=== PATIENT | male | born 1970 | race Caucasian/White ===

== ENCOUNTER 2019-02-13 06:34 | Day surgery (SDC) | payer BC ==
[2019-02-12 12:16] VITALS: BMI 29.8
[~2019-02-13 06:34] MED LIST: DEXAMETHASONE SOD PHOSPHATE 10 MG/ML 1 ML VIAL IV ONE; KETOROLAC 30 MG/ML 1 ML VIAL IVP SCH; LACTATED RINGERS 1,000 ML IV SCH; LIDOCAINE 1% 20 ML VIAL (10MG/ML) FOR IV START INTRADERMA PRN; MIDAZOLAM 2 MG/2 ML VIAL IV PRN; MORPHINE SULFATE 2 MG/ML SYRINGE IV PRN; ONDANSETRON 4 MG/2 ML VIAL IVP PRN; Pre Op ABX Message 1 EACH MISC MISCELLANE ONE
[2019-02-13] MEDS ORDERED: ePHEDrine SULFATE/0.9% NACL/PF 50 MG/5 ML SYRINGE IV ONE (07:20)
[2019-02-13] MEDS ORDERED: MIDAZOLAM 2 MG/2 ML VIAL ONE (07:20)
[2019-02-13] MEDS ORDERED: PHENYLEPHRINE-0.9% NACL SYG 1 MG/10 ML SYRINGE ONE (07:20)
[2019-02-13] MEDS ORDERED: PROPOFOL 10 MG/ML 20 ML VIAL IV ONE (07:20)
[2019-02-13] MEDS ORDERED: SUCCINYLCHOLINE CHLORIDE 100 MG/5 ML SYR IV ONE (07:20)
[2019-02-13] MEDS ORDERED: fentaNYL (PF) 50 MCG/ML 2 ML AMP ONE (07:20)
--- NOTE | 2019-02-13 07:24 | P.GSHP ---
History of Present Illness H&P Date: 02/13/19 CHIEF COMPLAINT: Left shoulder mass HISTORY OF PRESENT ILLNESS: The patient is a 48 year-old male with history of mass along the left shoulder. He presents today for surgical excision. PAST MEDICAL HISTORY: Please see list. PAST SURGICAL HISTORY: Please see list. MEDICATIONS: Please see list. ALLERGIES: Please see list. SOCIAL HISTORY: No illicit drug use FAMILY HISTORY: No reports of Crohn disease or ulcerative colitis. REVIEW OF ORGAN SYSTEMS: CONSTITUTIONAL: No reports of fevers or chills. GI: Denies any blood in stools or constipation. PHYSICAL EXAM: VITAL SIGNS: Stable Musculoskeletal: Approximately 5 cm left shoulder mass. GENERAL: Well developed and in no acute distress. Pleasant. HEENT: No sclera icterus. Extraocular movements grossly intact. Moist buccal mucosa. Head is atraumatic, normocephalic. Hears conversational speech. No nasal drainage. NECK: Supple without lymphadenopathy. No JV distention. CHEST: Non-labored respirations and equal bilateral excursions. CARDIOVASCULAR: Regular rate and rhythm. Palpable 2+ radial pulses. ABDOMEN: Soft. Non-tender. Nondistended. NEUROLOGIC: No focal or lateralizing signs. PSYCH: Appropriate affect. Alert and oriented to person, place and time. ASSESSMENT: 1. Mass left shoulder PLAN: 1. Will proceed of excision of subcutaneous tumor along the left shoulder 2. DVT prophylaxis. 3. Antibiotic prophylaxis. 4. Time of recovery, at least one week. Past Medical History Past Medical History: Hypertension, Thyroid Disorder Additional Past Medical History / Comment(s): lipoma left shoulder History of Any Multi-Drug Resistant Organisms: None Reported Past Surgical History: Hernia Repair Additional Past Surgical History / Comment(s): abd hernia x3,colonoscopy Past Anesthesia/Blood Transfusion Reactions: No Reported Reaction Additional Past Anesthesia/Blood Transfusion Reaction / Comment(s): no hx blood transfusion Smoking Status: Current every day smoker - Past Family History Mother Family Medical History: Cancer Additional Family Medical History / Comment(s): brain Medications and Allergies Home Medications Medication Instructions Recorded Confirmed Type Amlodipine(Unk Dose) 1 tab PO HS 02/12/19 History Benazepril(Unk Dose) 1 tab PO HS 02/12/19 History Cyclobenzaprine [Flexeril] 10 mg PO TID PRN 02/12/19 02/13/19 History Ibuprofen [Motrin] 800 mg PO Q8H PRN 02/12/19 02/13/19 History Thyroid (Unk Dose) 1 tab PO DAILY 02/12/19 History Allergies Allergy/AdvReac Type Severity Reaction Status Date / Time No Known Allergies Allergy Verified 02/12/19 12:08 Surgical - Exam Vital Signs Temp Pulse Resp BP Pulse Ox 98.4 F 77 18 150/95 97 02/13/19 06:53 02/13/19 06:53 02/13/19 06:53 02/13/19 06:53 02/13/19 06:53
[2019-02-13] MEDS ORDERED: LIDOCAINE 1%-EPI 1:100,000 20 ML VIAL SQ ONE (07:58)
[2019-02-13] MEDS ORDERED: LACTATED RINGERS 1,000 ML IV ONE (08:10)
[2019-02-13 09:00] VITALS: TEMP 97.2
[2019-02-13 09:05] VITALS: RESP 16
--- NOTE | 2019-02-13 09:20 | P.OP ---
Date of Procedure: 02/13/19 Description of Procedure: SURGEON: AURORA ESPARZA MD MAINTENANCE ASSISTANT: None. PREOPERATIVE DIAGNOSES: 1. Left posterior shoulder mass, over 8 cm 2. Hypertensive heart disease 3. Tobacco abuse POSTOPERATIVE DIAGNOSES: 1. Deep subfascial left posterior shoulder mass, 13 x 8 cm 2. Hypertensive heart disease 3. Tobacco abuse 4. Chronic obstructive pulmonary disease PROCEDURES PERFORMED: 1. Excision of deep subfascial posterior left shoulder mass, 13 x 8 cm 2. Intermediate closure left posterior shoulder incision, 12 -cm Anesthesia: GETA, local Estimated Blood Loss (ml): 5 Pathology: other (shoulder mass) Condition: stable Disposition: same day COMPLICATIONS: None. FINDINGS: 1. Complex interdigitating multilobulated lipoma left posterior shoulder deep to the fascia, 13 x 8 cm 2. Moderate coughing under general anesthetic consistent with chronic obstructive pulmonary disease INDICATIONS: The patient is a 48-year-old male who presents with symptomatic large left posterior shoulder tumor. Benefits and risks of surgical intervention were described including bleeding, infection. Informed consent was obtained. DESCRIPTION OR PROCEDURE: In the preoperative area, the area of concern was marked with indelible marker. Patient was brought into the operating room. After general induction, he was positioned in right lateral decubitus position. The shouler was prepped and draped in a standard sterile fashion with ChloraPrep. Timeout protocol was confirmed with the surgical team regarding the patient's name, procedure to be performed including preoperative medications. DVT prophylaxis was confirmed with SCDs. A field block was placed of the left shoulder. A posterior transverse 12-cm incision made over the prominence of the mass using #15 blade. Electro-Bovie cautery including blunt dissection was used to circumferential dissect an interdigitating multilobulated lipoma that extended into the fascia of the left shoulder. Dissection extended into the posterior deltoid muscle. The tumor was removed in total with small extension onto the triceps muscle. The tumor was measured of 13-cm x 8-cm. Hemostasis was excellent. 0 Vicryl was placed for the deep subcutaneous tissue followed by 3-0 Monocryl for the dermis in a running subcuticular fashion. The skin was cleansed and Exofin tape with liquid was applied. The incision was covered with Optifoam dressing. Local anesthetic was placed. At the end of the procedure, needle, sponge, and instrument count was verified correct by surgical aides teacher. During the procedure, the patient did have coughing despite general anesthetic consistent with chronic obstructive pulmonary disease. Operative findings incl uding digital imaging was shared with the patient's family. Plan - Discharge Summary Discharge Rx Participant: No New Discharge Prescriptions: New Ibuprofen 800 mg PO Q8HR PRN #30 tablet PRN Reason: Pain No Action Ibuprofen [Motrin] 800 mg PO Q8H PRN PRN Reason: Pain Cyclobenzaprine [Flexeril] 10 mg PO TID PRN PRN Reason: Pain Thyroid (Unk Dose) 1 tab PO DAILY Benazepril(Unk Dose) 1 tab PO HS Amlodipine(Unk Dose) 1 tab PO HS Discharge Medication List Amlodipine(Unk Dose) 1 tab PO HS 02/12/19 [History] Benazepril(Unk Dose) 1 tab PO HS 02/12/19 [History] Cyclobenzaprine [Flexeril] 10 mg PO TID PRN 02/12/19 [History] Ibuprofen [Motrin] 800 mg PO Q8H PRN 02/12/19 [History] Thyroid (Unk Dose) 1 tab PO DAILY 02/12/19 [History] Ibuprofen 800 mg PO Q8HR PRN #30 tablet 02/13/19 [Rx] Follow up Appointment(s)/Referral(s): Aurora Esparza MD [STAFF PHYSICIAN] - 02/17/19 Patient Instructions/Handouts: Excision of Skin Lesion (GEN), How to Stop Smoking (DC) Activity/Diet/Wound Care/Special Instructions: No lifting over 10 pounds for 10 days until 02/23/2019. May shower. No bath tub soaks. Limit movement of the left shoulder. No stretching arm above head or across torso. Dressing to be removed 02/17/19 in the office. Discharge Disposition: HOME SELF-CARE
[2019-02-13 10:05] VITALS: BP 152/98; PULSE 87
== END 2019-02-13 10:21 | disposition home or self-care (01) ==
LOC: OR 06:34
PROVIDERS: ATTEND Surgery Plastic and Reconstructive Surgery
DX: D17.9 Benign lipomatous neoplasm, unspecified (principal); I11.9 Hypertensive heart disease without heart failure; J44.9 Chronic obstructive pulmonary disease, unspecified; E07.9 Disorder of thyroid, unspecified; F17.200 Nicotine dependence, unspecified, uncomplicated; Z79.890 Hormone replacement therapy; Z79.899 Other long term (current) drug therapy; Z98.890 Other specified postprocedural states; Z80.8 Family history of malignant neoplasm of other organs or systems
CPT/HCPCS: 88304; 23073; J2250; J1100; J0690; J2405; J3010; J2370; J0330; J2704

== ENCOUNTER 2021-12-09 12:02 | Inpatient (IN) | payer BC ==
--- NOTE | 2021-12-09 13:31 | ED ---
Skin/Abscess/FB HPI - General Chief complaint: Skin/Abscess/Foreign Body Stated complaint: cellulitis Time Seen by Provider: 12/09/21 13:25 Source: patient, family, RN notes reviewed, old records reviewed Mode of arrival: ambulatory Limitations: no limitations - History of Present Illness Initial comments: Well-appearing 51-year-old male presents ambulatory to the emergency room, sent from urgent care for cellulitis of the right upper extremity. Patient states that he was using a wire grinding wheel on Saturday and had multiple wires that stuck into his right arm near his elbow. His states that she pulled them out however he has had increased pain, swelling and redness of the arm. She states he has a history of cellulitis to this same arm four years ago from dog bite. He did go to urgent care and was given a shot of Rocephin and recommended coming to the emergency room. MD complaint: discoloration, other (Colitis) -: days(s) (4) Tetanus Up to Date: yes Location: RUE Severity scale (1-10): 8 Consistency: constant Improves with: none Context: other (puncture injury with wire grinding wheel) - Related Data Home Medications Medication Instructions Recorded Confirmed Cyclobenzaprine [Flexeril] 10 mg PO TID PRN 02/12/19 12/09/21 Benazepril HCl 40 mg PO HS 12/09/21 12/09/21 Ibuprofen 800 mg PO Q8H PRN 12/09/21 12/09/21 LORazepam [Ativan] 1 mg PO BID PRN 12/09/21 12/09/21 Levothyroxine Sodium [Synthroid] 75 mcg PO HS 12/09/21 12/09/21 Metoprolol Tartrate [Lopressor] 25 mg PO DAILY 12/09/21 12/09/21 amLODIPine [Norvasc] 5 mg PO HS 12/09/21 12/09/21 Allergies Allergy/AdvReac Type Severity Reaction Status Date / Time No Known Allergies Allergy Verified 12/09/21 15:26 Review of Systems ROS Statement: Those systems with pertinent positive or pertinent negative responses have been documented in the HPI. ROS Other: All systems not noted in ROS Statement are negative. Past Medical History Past Medical History: Hypertension, Thyroid Disorder Additional Past Medical History / Comment(s): lipoma left shoulder History of Any Multi-Drug Resistant Organisms: None Reported Past Surgical History: Hernia Repair Additional Past Surgical History / Comment(s): abd hernia x3,colonoscopy Past Anesthesia/Blood Transfusion Reactions: No Reported Reaction Additional Past Anesthesia/Blood Transfusion Reaction / Comment(s): no hx blood transfusion Past Psychological History: No Psychological Hx Reported Smoking Status: Current every day smoker Past Alcohol Use History: Occasional Past Drug Use History: None Reported - Past Family History Mother Family Medical History: Cancer Additional Family Medical History / Comment(s): brain General Exam Limitations: no limitations General appearance: alert, in no apparent distress Head exam: Present: atraumatic Respiratory exam: Absent: respiratory distress, accessory muscle use Cardiovascular Exam: Present: tachycardia Extremities exam: Present: normal capillary refill Right Upper Arm exam: Present: tenderness, swelling, erythema Elbow exam: Present: tenderness, swelling, erythema Forearm Wrist exam: Present: tenderness, swelling, erythema Vascular: Present: normal capillary refill, radial pulse. Absent: vascular compromise Neurological exam: Present: alert, oriented X3, normal gait Psychiatric exam: Present: normal affect, normal mood Skin exam: Present: warm, dry. Absent: cyanosis, diaphoretic Course Vital Signs 12/09/21 12/09/21 12:09 14:45 Temperature 99.0 F Pulse Rate 104 H 89 Respiratory 18 18 Rate Blood Pressure 106/69 119/76 O2 Sat by Pulse 96 96 Oximetry Medical Decision Making - Medical Decision Making X-ray shows soft tissue swelling over the olecranon with evidence of cellulitis, no fracture or radiopaque foreign body is found. Patient states that his tetanus shot is up-to-date Due to extensive cellulitis from hand to mid upper arm and low-grade fever, patient will be started on IV antibiotics and admitted to the hospital. Patient and family member are agreeable to this plan of care. Case discussed with Dr. Chau. Patient was ordered vancomycin and Unasyn with consults to infectious disease and orthopedics per Dr. Marte - Lab Data Result diagrams: 12/09/21 14:18 12/09/21 14:18 Lab Results 12/09/21 12/09/21 12/09/21 Range/Units 14:18 14:18 14:18 WBC 16.9 H (3.8-10.6) k/uL RBC 4.75 (4.30-5.90) m/uL Hgb 14.7 (13.0-17.5) gm/dL Hct 42.8 (39.0-53.0) % MCV 90.1 (80.0-100.0) fL MCH 31.0 (25.0-35.0) pg MCHC 34.4 (31.0-37.0) g/dL RDW 13.6 (11.5-15.5) % Plt Count 177 (150-450) k/uL MPV 9.0 Neutrophils % 84 % Lymphocytes % 10 % Monocytes % 4 % Eosinophils % 1 % Basophils % 0 % Neutrophils # 14.1 H (1.3-7.7) k/uL Lymphocytes # 1.7 (1.0-4.8) k/uL Monocytes # 0.6 (0-1.0) k/uL Eosinophils # 0.2 (0-0.7) k/uL Basophils # 0.1 (0-0.2) k/uL Sodium 138 (137-145) mmol/L Potassium 3.0 L (3.5-5.1) mmol/L Chloride 103 (98-107) mmol/L Carbon Dioxide 23 (22-30) mmol/L Anion Gap 12 mmol/L BUN 16 (9-20) mg/dL Creatinine 1.22 (0.66-1.25) mg/dL Est GFR (CKD-EPI)AfAm 78 (>60 ml/min/1.73 sqM) Est GFR (CKD-EPI)NonAf 68 (>60 ml/min/1.73 sqM) Glucose 131 H (74-99) mg/dL Plasma Lactic Acid Dimitri 1.4 (0.7-2.0) mmol/L Calcium 8.7 (8.4-10.2) mg/dL Total Bilirubin 1.7 H (0.2-1.3) mg/dL AST 21 (17-59) U/L ALT 20 (4-49) U/L Alkaline Phosphatase 75 (38-126) U/L Total Protein 6.8 (6.3-8.2) g/dL Albumin 4.1 (3.5-5.0) g/dL Disposition Clinical Impression: Cellulitis Disposition: ADMITTED IP TO THIS [facility] Decision Date: 12/09/21 Decision Time: 14:18
[2021-12-09] MEDS ORDERED: PIPERACILLIN-TAZOBACTAM 3.375 GM in SODIUM CHLORIDE 0.9% 100 ML IVPB STA (13:47)
[2021-12-09] MEDS ORDERED: VANCOMYCIN IV PER PHARMACY 1 EACH MISC MISCELLANE PRN ×2 (13:48→16:59)
--- NOTE | 2021-12-09 14:09 | XR ---
EXAMINATION TYPE: XR elbow complete RT DATE OF EXAM: 12/09/2021 1:50 PM INDICATION: Patient age:Male; 51 years old; Reason for study: foreign body; COMPARISON: None TECHNIQUE: The right elbow was examined in AP, lateral, and oblique projections. FINDINGS: Swelling over the olecranon and forearm. No evidence of any acute osseous pathology, joint dislocation. No evidence of joint effusion is present. No radiopaque foreign bodies appreciated. IMPRESSION: Soft tissue swelling over the olecranon correlate for olecranon bursitis/cellulitis. No evidence for acute fracture. No radiopaque foreign bodies.
[2021-12-09] MEDS ORDERED: MORPHINE SULFATE 4 MG/ML SYRINGE IVP STA (14:24)
[2021-12-09] MEDS ORDERED: VANCOMYCIN 2,000 MG in SODIUM CHLORIDE 0.9% 500 ML 500 ML IVPB ONE (14:30)
[2021-12-09] MEDS ORDERED: AMPICILLIN-SULBACTAM 3 GM in SODIUM CHLORIDE 0.9% 100 ML IVPB STA (14:43)
[2021-12-09] MEDS ORDERED: ACETAMINOPHEN TAB 325 MG TAB PO PRN (14:44)
[2021-12-09] MEDS ORDERED: NALOXONE 0.4 MG/ML 1 ML VIAL IV PRN (14:44)
[2021-12-09 14:53] LABS: Albumin 4.1 g/dL (3.5-5.0); Basophils # (A) 0.1 k/uL (0-0.2); Basophils % (A) 0 %; Calcium 8.7 mg/dL (8.4-10.2); Eosinophils # (A) 0.2 k/uL (0-0.7); Eosinophils % (A) 1 %; HCT 42.8 % (39.0-53.0); HGB 14.7 gm/dL (13.0-17.5); Lymphocytes # (A) 1.7 k/uL (1.0-4.8); Lymphocytes % (A) 10 %; MCHC 34.4 g/dL (31.0-37.0); MCV 90.1 fL (80.0-100.0); Monocytes # (A) 0.6 k/uL (0-1.0); Monocytes % (A) 4 %; Neutrophils # (A) 14.1 k/uL (1.3-7.7); Neutrophils % (A) 84 %; Platelet Count 177 k/uL (150-450); RBC 4.75 m/uL (4.30-5.90); RDW 13.6 % (11.5-15.5); Total Bilirubin 1.7 mg/dL (0.2-1.3); Total Protein 6.8 g/dL (6.3-8.2); WBC 16.9 k/uL (3.8-10.6)
[2021-12-09] MEDS ORDERED: POTASSIUM CHLORIDE ER 20 MEQ TAB.ER PO STA (15:00)
[2021-12-09] MEDS ORDERED: LORazepam 1 MG TAB PO PRN (15:47)
[2021-12-09] MEDS ORDERED: CYCLOBENZAPRINE 10 MG TAB PO PRN (15:47)
[2021-12-09] MEDS ORDERED: DIPH,PERTUS(ACELL)TETVAC-LF 0.5 ML VIAL IM ONE (16:57)
--- NOTE | 2021-12-09 16:57 | P.HPIM ---
History of Present Illness H&P Date: 12/09/21 Chief Complaint: Right arm redness, worsening, after puncture wound metal brush right elbow. This is a 51-year-old gentleman, patient of Dr. Rust, known history of hypothyroidism, hypertension, current tobacco use, who was well until 4 days prior to admission where she had a puncture wound, with a metal brush use for automotive cleaning on 12/05/2021. Patient has swelling and tenderness, effusion in the right elbow, with small redness at that time, however this has Been worse, ascending to the axillae region, and down to the right wrist now circumferential in diameter, with swelling tenderness, he was seen in urgent care, was given Rocephin was subsequently sent to emergency room for admission. Patient needs an up-to-date tetanus vaccination, which would be offered during this admission. Currently the found the mental brush his that she took out from the skin, unknown how deep the brushes were located, x-rays failed to reveal any metallic foreign body consult with Dr. Osborne, and orthopedic surgeon Review of Systems REVIEW OF SYSTEMS Constitutional: No fever, no chills, no night sweats. No weight change. generalized weakness, EENT: No headache. No blurred vision or double vision, no loss of vision. No loss of Hearing, no ringing in the ears, no dizziness. No nasal drainage or congestion. No epistaxis. No sore throat. Lungs: No shortness of breath, cough, no sputum production. No wheezing. Cardiovascular: No chest pain, no lower extremity edema. No palpitations. No paroxysmal nocturnal dyspnea. No orthopnea. No lightheadedness or dizziness. No syncopal episodes. Abdominal: No abdominal pain. No nausea, vomiting. No diarrhea. No constipation. No bloody or tarry stools. No loss of appetite. Genitourinary: No dysuria, increased frequency, urgency. No urinary retention. Musculoskeletal: No myalgias. + muscle weakness, + gait dysfunction, no frequent falls. No back pain. No neck pain. Integumentary: , no lesions. No rash or pruritus. No unusual bruising. No change in hair or nails. Acute wound as described in the right upper extremity Neurologic: No aphasia. No facial droop. noted change in mentation. No head injury. No headache. No paralysis. No paresthesia. Psychiatric: No depression. No anxiety. No mood swings. Endocrine: No abnormal blood sugars. No weight change. No excessive sweating or thirst. No cold intolerance. 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 FAMILY HISTORY work in [employer] she is has 2 children both are living and well, has 1 brother is doing well, her father's any 70 had CAD and hypertension in mother is living in her 70s with no major health issue. Father , unknown reason, he was found in June, has ongoing hypertension CAD. Mother at age 50, secondary to breast CA, one brother recently, 49 secondary to CAD, no sisters, one daughter one son healthy - Past Family History Mother Family Medical History: Cancer Additional Family Medical History / Comment(s): brain General Exam General appearance: alert, in no apparent distress no polyuria no jaundice no cyanosis Head exam: Present: atraumatic Respiratory exam: Absent: respiratory distress, accessory muscle use clear to auscultation bilaterally Cardiovascular Exam: Present: tachycardia regular no ectopy no murmurs Extremities exam: Present: normal capillary refill right extremity, with the elbow, to puncture wound, less than 0.5 cm on the upper border, and 3 mm on the lower border, with circumferential erythema, swelling tenderness, effusion in the olecranon region, no lymphadenopathy, be upper extremity now has an inner ascending cellulitis and phlebitis, up to the axilla and down to the right wrist minutes range of motion, elbow Forearm Wrist exam: Present: tenderness, swelling, erythema with diminished range of motion Vascular: Present: normal capillary refill, radial pulse. Absent: vascular compromise Neurological exam: Present: alert, oriented X3, normal gait Psychiatric exam: Present: normal affect, normal mood Skin exam: Present: warm, dry. Absent: cyanosis, except for the right Maria Esther as described above Assessment and plan 1 acute cellulitis suspected septic arthritis elbow with small effusion of the upper extremity involving upper ext elbow and e forearm, ending at the wrist right side, involving a puncture wound with a metal, from initial injury 12/05/2021, with circumferential cellulitis, and worrisome complications include sepsis/blood poisoning. Patient will be started on Unasyn, and vancomycin, infectious disease consult Dr. Osborne and orthopedic consult, regarding the possible foreign body metallic object, right elbow x-rays failed to reveal any foreign body at this time however these are very tiny metal brush 2. Hypertension on amlodipine 5 mg daily, metoprolol 25 mg daily, this is a 40 mg 3. Hypothyroidism levothyroxine 75 Anxiety disorder, Ativan 1 mg twice a day when necessary 4. DVT prophylaxis with early ambulation, monitor for compression or compartment syndrome upper extremity, at the puncture maria del carmen with cellulitis 5 GI prophylaxis Pepcid 6 Expected length of stay, 2 nights or more, depending on progression of recovery from the cellulitis 7 Tetanus vaccination updated, with a current puncture wound from a metal object Laboratory Results WBC 16.9 k/uL (3.8-10.6) H 12/09/21 14:18 RBC 4.75 m/uL (4.30-5.90) 12/09/21 14:18 Hgb 14.7 gm/dL (13.0-17.5) 12/09/21 14:18 Hct 42.8 % (39.0-53.0) 12/09/21 14:18 MCV 90.1 fL (80.0-100.0) 12/09/21 14:18 MCH 31.0 pg (25.0-35.0) 12/09/21 14:18 MCHC 34.4 g/dL (31.0-37.0) 12/09/21 14:18 RDW 13.6 % (11.5-15.5) 12/09/21 14:18 Plt Count 177 k/uL (150-450) 12/09/21 14:18 MPV 9.0 12/09/21 14:18 Neutrophils % 84 % 12/09/21 14:18 Lymphocytes % 10 % 12/09/21 14:18 Monocytes % 4 % 12/09/21 14:18 Eosinophils % 1 % 12/09/21 14:18 Basophils % 0 % 12/09/21 14:18 Neutrophils # 14.1 k/uL (1.3-7.7) H 12/09/21 14:18 Lymphocytes # 1.7 k/uL (1.0-4.8) 12/09/21 14:18 Monocytes # 0.6 k/uL (0-1.0) 12/09/21 14:18 Eosinophils # 0.2 k/uL (0-0.7) 12/09/21 14:18 Basophils # 0.1 k/uL (0-0.2) 12/09/21 14:18 Sodium 138 mmol/L (137-145) 12/09/21 14:18 Potassium 3.0 mmol/L (3.5-5.1) L 12/09/21 14:18 Chloride 103 mmol/L (98-107) 12/09/21 14:18 Carbon Dioxide 23 mmol/L (22-30) 12/09/21 14:18 Anion Gap 12 mmol/L 12/09/21 14:18 BUN 16 mg/dL (9-20) 12/09/21 14:18 Creatinine 1.22 mg/dL (0.66-1.25) 12/09/21 14:18 Est GFR (CKD-EPI)AfAm 78 (>60 ml/min/1.73 sqM) 12/09/21 14:18 Est GFR (CKD-EPI)NonAf 68 (>60 ml/min/1.73 sqM) 12/09/21 14:18 Glucose 131 mg/dL (74-99) H 12/09/21 14:18 Plasma Lactic Acid Dimitri 1.4 mmol/L (0.7-2.0) 12/09/21 14:18 Calcium 8.7 mg/dL (8.4-10.2) 12/09/21 14:18 Total Bilirubin 1.7 mg/dL (0.2-1.3) H 12/09/21 14:18 AST 21 U/L (17-59) 12/09/21 14:18 ALT 20 U/L (4-49) 12/09/21 14:18 Alkaline Phosphatase 75 U/L (38-126) 12/09/21 14:18 Total Protein 6.8 g/dL (6.3-8.2) 12/09/21 14:18 Albumin 4.1 g/dL (3.5-5.0) 12/09/21 14:18 Vital Signs - 24 hr 12/09/21 12/09/21 12:09 14:45 Temperature 99.0 F Pulse Rate 104 H 89 Respiratory 18 18 Rate Blood Pressure 106/69 119/76 O2 Sat by Pulse 96 96 Oximetry Past Medical History Past Medical History: Hypertension, Thyroid Disorder Additional Past Medical History / Comment(s): lipoma left shoulder History of Any Multi-Drug Resistant Organisms: None Reported Past Surgical History: Hernia Repair Additional Past Surgical History / Comment(s): abd hernia x3,colonoscopy Past Anesthesia/Blood Transfusion Reactions: No Reported Reaction Additional Past Anesthesia/Blood Transfusion Reaction / Comment(s): no hx blood transfusion Past Psychological History: No Psychological Hx Reported Smoking Status: Current every day smoker Past Alcohol Use History: Occasional Past Drug Use History: None Reported - Past Family History Mother Family Medical History: Cancer Additional Family Medical History / Comment(s): brain Medications and Allergies Home Medications Medication Instructions Recorded Confirmed Type Cyclobenzaprine [Flexeril] 10 mg PO TID PRN 02/12/19 12/09/21 History Benazepril HCl 40 mg PO HS 12/09/21 12/09/21 History Ibuprofen 800 mg PO Q8H PRN 12/09/21 12/09/21 History LORazepam [Ativan] 1 mg PO BID PRN 12/09/21 12/09/21 History Levothyroxine Sodium [Synthroid] 75 mcg PO HS 12/09/21 12/09/21 History Metoprolol Tartrate [Lopressor] 25 mg PO DAILY 12/09/21 12/09/21 History amLODIPine [Norvasc] 5 mg PO HS 12/09/21 12/09/21 History Allergies Allergy/AdvReac Type Severity Reaction Status Date / Time No Known Allergies Allergy Verified 12/09/21 15:26 Physical Exam Vitals: Vital Signs Temp Pulse Resp BP Pulse Ox 12/09/21 14:45 89 18 119/76 96 12/09/21 12:09 99.0 F 104 H 18 106/69 96 Intake and Output 12/09/21 12/09/21 12/09/21 06:59 14:59 22:59 Other: Weight 95.254 kg Results CBC & Chem 7: 12/09/21 14:18 12/09/21 14:18 Labs: Abnormal Lab Results - Last 24 Hours (Table) 12/09/21 12/09/21 Range/Units 14:18 14:18 WBC 16.9 H (3.8-10.6) k/uL Neutrophils # 14.1 H (1.3-7.7) k/uL Potassium 3.0 L (3.5-5.1) mmol/L Glucose 131 H (74-99) mg/dL Total Bilirubin 1.7 H (0.2-1.3) mg/dL
[2021-12-09] MEDS: LEVOTHYROXINE 75 MCG TAB PO SCH (19:53)
[2021-12-09] MEDS: lisinopriL 20 MG TAB PO SCH (19:53)
[2021-12-09] MEDS ORDERED: amLODIPine 5 MG TAB PO SCH (21:00)
[2021-12-09] MEDS ORDERED: AMPICILLIN-SULBACTAM 3 GM in SODIUM CHLORIDE 0.9% 100 ML IVPB SCH (22:00)
--- NOTE | 2021-12-10 01:02 | P.CONS ---
History of Present Illness - Reason for Consult Consult date: 12/09/21 Cellulitis Requesting physician: Chavez Barker - Chief Complaint Right elbow pain and swelling - History of Present Illness Patient is a 51-year-old male with a past medical history significant for hypertension hypothyroidism current tobacco use in this patient who did have a puncture wound to the right elbow from a metal brush used for automatic cleaning which happened on 12/05/2021 patient mention afterwards he noticed to have increasing pain swelling redness to the right elbow area patient described the pain to be throbbing with intensity almost 10 out of 10 and no radiation with associated swelling redness but no drainage patient went to the local urgent care with the patient was given Rocephin and subsequently has been sent to the [facility] ER for further management on arrival to the ER the patient did have a low-grade fever of 99 F, patient did have white count of 16.9 with a left shift kidney function has been normal liver enzymes are normal patient did have elbow x-ray shows soft tissue swelling over the olecranon concerning for olecranon bursitis patient was started on vancomycin and Unasyn infectious disease was consulted for further management of antibiotic therapy Review of Systems Positive point has been mentioned in the HPI rest of the systems are negative Past Medical History Past Medical History: Hypertension, Thyroid Disorder Additional Past Medical History / Comment(s): lipoma left shoulder History of Any Multi-Drug Resistant Organisms: None Reported Past Surgical History: Hernia Repair Additional Past Surgical History / Comment(s): abd hernia x3,colonoscopy Past Anesthesia/Blood Transfusion Reactions: No Reported Reaction Additional Past Anesthesia/Blood Transfusion Reaction / Comm: no hx blood transfusion Past Psychological History: No Psychological Hx Reported Smoking Status: Current every day smoker Past Alcohol Use History: Occasional Past Drug Use History: None Reported - Past Family History Mother Family Medical History: Cancer Additional Family Medical History / Comment(s): brain Medications and Allergies Home Medications Medication Instructions Recorded Confirmed Type Cyclobenzaprine [Flexeril] 10 mg PO TID PRN 02/12/19 12/09/21 History Benazepril HCl 40 mg PO HS 12/09/21 12/09/21 History Ibuprofen 800 mg PO Q8H PRN 12/09/21 12/09/21 History LORazepam [Ativan] 1 mg PO BID PRN 12/09/21 12/09/21 History Levothyroxine Sodium [Synthroid] 75 mcg PO HS 12/09/21 12/09/21 History Metoprolol Tartrate [Lopressor] 25 mg PO DAILY 12/09/21 12/09/21 History amLODIPine [Norvasc] 5 mg PO HS 12/09/21 12/09/21 History Allergies Allergy/AdvReac Type Severity Reaction Status Date / Time No Known Allergies Allergy Verified 12/09/21 15:26 Physical Exam Vitals: Vital Signs Temp Pulse Resp BP Pulse Ox 12/09/21 14:45 89 18 119/76 96 12/09/21 12:09 99.0 F 104 H 18 106/69 96 Intake and Output 12/09/21 12/09/21 12/09/21 06:59 14:59 22:59 Other: Weight 95.254 kg GENERAL DESCRIPTION: Middle-aged male lying in bed, no distress. No tachypnea or accessory muscle of respiration use. HEENT: Shows Pallor , no scleral icterus. Oral mucous membrane is dry. No pharyngeal erythema or thrush NECK: Trachea central, no thyromegaly. LUNGS: Unlabored breathing. Clear to auscultation anteriorly. No wheeze or crackle. HEART: S1, S2, regular rate and rhythm. No loud murmur ABDOMEN: Soft, no tenderness , guarding or rigidity, no organomegaly EXTREMITIES: Right elbow and upper extremity with diffuse swelling and redness warm and tender to touch. SKIN: No rash, no masses palpable. NEUROLOGICAL: The patient is awake, alert, oriented x3, mood and affect normal. Results CBC & Chem 7: 12/11/21 06:08 12/11/21 06:08 Labs: Abnormal Lab Results - Last 24 Hours (Table) 12/09/21 12/09/21 Range/Units 14:18 14:18 WBC 16.9 H (3.8-10.6) k/uL Neutrophils # 14.1 H (1.3-7.7) k/uL Potassium 3.0 L (3.5-5.1) mmol/L Glucose 131 H (74-99) mg/dL Total Bilirubin 1.7 H (0.2-1.3) mg/dL Assessment and Plan (1) Cellulitis of right upper limb Current Visit: Yes Status: Acute Code(s): L03.113 - CELLULITIS OF RIGHT UPPER LIMB SNOMED Code(s): 412436682 (2) Septic olecranon bursitis of right elbow Current Visit: Yes Status: Acute Code(s): M71.121 - OTHER INFECTIVE BURSITIS, RIGHT ELBOW SNOMED Code(s): 6801596497374191 Plan: 1patient presented to hospital with sepsis since we did have a low-grade fever tachycardia and elevated white count source is right elbow/upper arm cellulitis and concerning for septic olecranon bursitis in this patient with recent puncture wound from a metallic object more likely from gram-positive skin queta and less likely gram-negative infection. 2await Ortho evaluation for possible I&D and deep culture. 3vancomycin pharmacy to dose target trough of 15 while watching kidney funct ion and vancomycin trough closely. 4switch Unasyn to cefepime for better gram-negative coverage. We will follow on clinical condition and cultures to further adjust medication if needed Thank you for this consultation will follow this patient along with you Time with Patient: Greater than 30
[2021-12-10] MEDS: HYDROmorphone 0.5 MG/0.5 ML SYRINGE IVP PRN ×3 (01:52→20:06)
[2021-12-10] MEDS: CEFEPIME 2 GM in SODIUM CHLORIDE 0.9% 100 ML IVPB SCH ×3 (01:52→17:40)
[2021-12-10] MEDS: VANCOMYCIN 1,750 MG in SODIUM CHLORIDE 0.9% 500 ML 500 ML IVPB SCH ×2 (06:20→17:39)
[2021-12-10] MEDS: METOPROLOL TARTRATE 25 MG TAB PO SCH (07:54)
[2021-12-10 10:06] LABS: Basophils # (A) 0.05 X 10*3/uL (0.00-0.10); Basophils % (A) 0.4 %; Eosinophils # (A) 0.26 X 10*3/uL (0.04-0.35); HCT 39.1 % (39.6-50.0); HGB 12.9 g/dL (13.0-17.0); Immature Grans, Automated 0.5 %; Lymphocytes # (A) 1.57 X 10*3/uL (0.90-5.00); Lymphocytes % (A) 12.3 %; MCH 29.5 pg (27.0-32.0); MCV 89.5 fL (80.0-97.0); Mean Platelet Volume 10.8 fL (9.5-12.2); Monocytes # (A) 0.85 X 10*3/uL (0.20-1.00); Monocytes % (A) 6.7 %; NRBC Per 100 WBC 0 /100 WBCS (0.0-0.0); Neutrophils # (A) 9.96 X 10*3/uL (1.80-7.70); Neutrophils % (A) 78.1 %; Platelet Count 147 X 10*3/uL (140-440); RBC 4.37 X 10*6/uL (4.40-5.60); WBC 12.75 X 10*3/uL (4.50-10.00)
--- NOTE | 2021-12-10 10:20 | P.PN ---
Subjective Progress Note Date: 12/10/21 Chief Complaint: Right arm redness, worsening, after puncture wound metal brush right elbow. This is a 51-year-old gentleman, patient of Dr. Rust, known history of hypothyroidism, hypertension, current tobacco use, who was well until 4 days prior to admission where she had a puncture wound, with a metal brush use for automotive cleaning on 12/05/2021. Patient has swelling and tenderness, effusion in the right elbow, with small redness at that time, however this has Been worse, ascending to the axillae region, and down to the right wrist now circumferential in diameter, with swelling tenderness, he was seen in urgent care, was given Rocephin was subsequently sent to emergency room for admission. Patient needs an up-to-date tetanus vaccination, which would be offered during this admission. Currently the found the mental brush his that she took out from the skin, unknown how deep the brushes were located, x-rays failed to reveal any metallic foreign body consult with Dr. Osborne, and orthopedic surgeon 12/10: Patient is much better, however she did not sleep last night, pain is lessened, redness is less and, still with edema, induration and swelling is s till present, however diminished in intensity. Start melatonin, start Lasix 40 mg daily, discontinue amlodipine, patient is off Unasyn, and replaced to Seprafilm, vancomycin infusing, with pharmacy to dose. Seen by infectious disease Dr. Osborne, pending orthopedic consultation. Will need intraoperative cultures wtih bursal debridement, holding off CAT scan at this time of elbow Review of Systems REVIEW OF SYSTEMS Constitutional: No fever, no chills, no night sweats. No weight change. generalized weakness, EENT: No headache. No blurred vision or double vision, no loss of vision. No loss of Hearing, no ringing in the ears, no dizziness. No nasal drainage or congestion. No epistaxis. No sore throat. Lungs: No shortness of breath, cough, no sputum production. No wheezing. Cardiovascular: No chest pain, no lower extremity edema. No palpitations. No paroxysmal nocturnal dyspnea. No orthopnea. No lightheadedness or dizziness. No syncopal episodes. Abdominal: No abdominal pain. No nausea, vomiting. No diarrhea. No constipation. No bloody or tarry stools. No loss of appetite. Genitourinary: No dysuria, increased frequency, urgency. No urinary retention. Musculoskeletal: No myalgias. + muscle weakness, + gait dysfunction, no frequent falls. No back pain. No neck pain. Integumentary: , no lesions. No rash or pruritus. No unusual bruising. No change in hair or nails. Acute wound as described in the right upper extremity Neurologic: No aphasia. No facial droop. noted change in mentation. No head injury. No headache. No paralysis. No paresthesia. Psychiatric: No depression. No anxiety. No mood swings. Endocrine: No abnormal blood sugars. No weight change. No excessive sweating or thirst. No cold intolerance. 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 FAMILY HISTORY work in [employer] she is has 2 children both are living and well, has 1 brother is doing well, her father's any 70 had CAD and hypertension in mother is living in her 70s with no major health issue. Father , unknown reason, he was found in June, has ongoing hypertension CAD. Mother at age 50, secondary to breast CA, one brother recently, 49 secondary to CAD, no sisters, one daughter one son healthy - Past Family History Mother Family Medical History: Cancer Additional Family Medical History / Comment(s): brain General Exam General appearance: alert, in no apparent distress no polyuria no jaundice no cyanosis Head exam: Present: atraumatic Respiratory exam: Absent: respiratory distress, accessory muscle use clear to auscultation bilaterally Cardiovascular Exam: Present: tachycardia regular no ectopy no murmurs Extremities exam: Present: normal capillary refill right extremity, with the elbow, to puncture wound, less than 0.5 cm on the upper border, and 3 mm on the lower border, with circumferential erythema, swelling tenderness, effusion in the olecranon region, no lymphadenopathy, be upper extremity now has an inner ascending cellulitis and phlebitis, up to the axilla and down to the right wrist minutes range of motion, elbow Forearm Wrist exam: Present: tenderness, swelling, erythema with diminished range of motion Vascular: Present: normal capillary refill, radial pulse. Absent: vascular c ompromise Neurological exam: Present: alert, oriented X3, normal gait Psychiatric exam: Present: normal affect, normal mood Skin exam: Present: warm, dry. Absent: cyanosis, except for the right Maria Esther as described above Assessment and plan 1 acute cellulitis suspected septic arthritis elbow with small effusion of the upper extremity involving upper ext elbow and forearm, ending at the wrist right side, involving a puncture wound with a metal, from initial injury 12/05/2021, with circumferential cellulitis, and worrisome complications include sepsis/blood poisoning. Patient will be started on now on cefepime, for gram- negative coverage as per infectious disease and vancomycin, infectious disease consult Dr. Osborne and orthopedic consult, regarding the possible foreign body metallic object, right elbow x-rays failed to reveal any foreign body at this time however these are very tiny metal brush 2. Hypertension with isolated upper extremity edema, start Lasix, discontinue amlodipine 5 mg daily, metoprolol 25 mg daily, this is a 40 mg 3. Hypothyroidism levothyroxine 75 Anxiety disorder, Ativan 1 mg twice a day when necessary 4. DVT prophylaxis with early ambulation, monitor for compression or compartment syndrome upper extremity, at the puncture maria del carmen with cellulitis 5 GI prophylaxis Pepcid 6 Expected length of stay, 2 nights or more, depending on progression of recovery from the cellulitis 7 Tetanus vaccination updated, with a current puncture wound from a metal object Laboratory Results - Last 24 Hours 12/09/21 12/09/21 12/09/21 14:18 14:18 14:18 WBC 16.9 H RBC 4.75 Hgb 14.7 Hct 42.8 MCV 90.1 MCH 31.0 MCHC 34.4 RDW 13.6 Plt Count 177 MPV 9.0 Immature Gran % (Auto) Absolute Nucleated RBC Neutrophils % 84 Lymphocytes % 10 Monocytes % 4 Eosinophils % 1 Basophils % 0 Immature Gran # Neutrophils # 14.1 H Lymphocytes # 1.7 Monocytes # 0.6 Eosinophils # 0.2 Basophils # 0.1 NRBC/100 WBC Diff Sodium 138 Potassium 3.0 L Chloride 103 Carbon Dioxide 23 Anion Gap 12 BUN 16 Creatinine 1.22 Est GFR (CKD-EPI)AfAm 78 Est GFR (CKD-EPI)NonAf 68 Glucose 131 H Plasma Lactic Acid Dimitri 1.4 Calcium 8.7 Total Bilirubin 1.7 H AST 21 ALT 20 Alkaline Phosphatase 75 Total Protein 6.8 Albumin 4.1 Vancomycin Trough 12/09/21 12/10/21 17:33 06:03 WBC 12.75 H RBC 4.37 L Hgb 12.9 L Hct 39.1 L MCV 89.5 MCH 29.5 MCHC 33.0 RDW 13.0 Plt Count 147 MPV 10.8 Immature Gran % (Auto) 0.5 Absolute Nucleated RBC 0 Neutrophils % 78.1 Lymphocytes % 12.3 Monocytes % 6.7 Eosinophils % 2.0 Basophils % 0.4 Immature Gran # 0.06 H Neutrophils # 9.96 H Lymphocytes # 1.57 Monocytes # 0.85 Eosinophils # 0.26 Basophils # 0.05 NRBC/100 WBC Diff 0 Sodium Potassium Chloride Carbon Dioxide Anion Gap BUN Creatinine Est GFR (CKD-EPI)AfAm Est GFR (CKD-EPI)NonAf Glucose Plasma Lactic Acid Dimitri Calcium Total Bilirubin AST ALT Alkaline Phosphatase Total Protein Albumin Vancomycin Trough 16.1 Vital Signs - 24 hr 12/09/21 12/09/21 12/09/21 12:09 14:45 17:29 Temperature 99.0 F 98.0 F Pulse Rate 104 H 89 Pulse Rate [ Pulse Oximetery ] Respiratory 18 18 18 Rate Blood Pressure 106/69 119/76 Blood Pressure [Left Arm Sitting] Blood Pressure [Left Arm Standing] Blood Pressure 144/86 [Left Arm] O2 Sat by Pulse 96 96 97 Oximetry 12/09/21 12/09/21 12/10/21 17:33 20:00 02:00 Temperature 98 F 98.2 F 99.2 F Pulse Rate Pulse Rate [ 91 102 H 98 Pulse Oximetery ] Respiratory 16 16 16 Rate Blood Pressure Blood Pressure [Left Arm Sitting] Blood Pressure 144/86 [Left Arm Standing] Blood Pressure 125/77 157/95 [Left Arm] O2 Sat by Pulse 97 95 95 Oximetry 12/10/21 12/10/21 07:00 08:00 Temperature 97.9 F Pulse Rate Pulse Rate [ 77 77 Pulse Oximetery ] Respiratory 16 17 Rate Blood Pressure Blood Pressure 115/76 [Left Arm Sitting] Blood Pressure [Left Arm Standing] Blood Pressure [Left Arm] O2 Sat by Pulse 98 Oximetry Active Medication List Acetaminophen (Acetaminophen Tab 325 Mg Tab) 650 mg PO Q6HR PRN PRN Reason: Mild Pain or Fever > 100.5 Last Admin: 12/10/21 01:52 Dose: 650 mg Documented by: SAUNDRA Cyclobenzaprine HCl (Cyclobenzaprine 10 Mg Tab) 10 mg PO TID PRN PRN Reason: Pain Furosemide (Furosemide 20 Mg Tab) 20 mg PO DAILY [facility] Hydromorphone HCl (Hydromorphone 0.5 Mg/0.5 Ml Syringe) 0.5 mg IVP Q3HR PRN PRN Reason: Moderate Pain Last Admin: 12/10/21 01:52 Dose: 0.5 mg Documented by: SAUNDRA Vancomycin HCl 1,750 mg/ (Sodium Chloride) 500 mls @ 167 mls/hr IVPB Q12H [facility] Last Admin: 12/10/21 06:20 Dose: 167 mls/hr Documented by: SAUNDRA Cefepime HCl 2 gm/ Sodium (Chloride) 100 mls @ 25 mls/hr IVPB Q8H [facility]; Protocol Last Admin: 12/10/21 09:42 Dose: 25 mls/hr Documented by: Admin: 12/10/21 01:52 Dose: 25 mls/hr Documented by: SAUNDRA Levothyroxine Sodium (Levothyroxine 75 Mcg Tab) 75 mcg PO [facility] Last Admin: 12/09/21 19:53 Dose: 75 mcg Documented by: SAUNDRA Lisinopril (Lisinopril 20 Mg Tab) 40 mg PO [facility] Last Admin: 12/09/21 19:53 Dose: 40 mg Documented by: SAUNDRA Lorazepam (Lorazepam 1 Mg Tab) 1 mg PO BID PRN PRN Reason: Anxiety Metoprolol Tartrate (Metoprolol Tartrate 25 Mg Tab) 25 mg PO DAILY [facility] Last Admin: 12/10/21 07:54 Dose: 25 mg Documented by: ALEJANDRO Naloxone HCl (Naloxone 0.4 Mg/Ml 1 Ml Vial) 0.2 mg IV Q2M PRN PRN Reason: Opioid Reversal Potassium Chloride (Potassium Chloride Er 10 Meq Tab.Er.Prt) 10 meq PO DAILY [facility] Discontinued Medications Amlodipine Besylate (Amlodipine 5 Mg Tab) 5 mg PO [facility] Last Admin: 12/09/21 19:53 Dose: 5 mg Documented by: SAUNDRA Diphtheria/Tetanus/Acell Pertussis (Diph,Pertus(Acell)Tetvac-Lf 0.5 Ml Vial) 0 .5 ml IM .ONCE ONE Stop: 12/09/21 16:58 Last Admin: 12/10/21 07:54 Dose: 0.5 ml Documented by: MLK Piperacillin Sod/Tazobactam (Sod 3.375 gm/ Sodium Chloride) 100 mls @ 200 mls/hr IVPB ONCE STA; Protocol Stop: 12/09/21 14:16 Last Admin: 12/10/21 07:01 Dose: 200 mls/hr Documented by: MLK Vancomycin HCl 2,000 mg/ (Sodium Chloride) 500 mls @ 167 mls/hr IVPB ONCE ONE Stop: 12/09/21 17:29 Last Admin: 12/09/21 16:29 Dose: 167 mls/hr Documented by: N Ampicillin Sodium/Sulbactam (Sodium 3 gm/ Sodium Chloride) 100 mls @ 200 mls/hr IVPB ONCE STA; Protocol Stop: 12/09/21 15:12 Last Admin: 12/09/21 15:37 Dose: 200 mls/hr Documented by: MATTHEW Ampicillin Sodium/Sulbactam (Sodium 3 gm/ Sodium Chloride) 100 mls @ 200 mls/hr IVPB Q6H [facility]; Protocol Last Admin: 12/09/21 19:53 Dose: 200 mls/hr Documented by: SAUNDRA Miscellaneous Information (Vancomycin Iv Per Pharmacy 1 Each Misc) 1 each MISCELLANE DIRECTED PRN; Protocol PRN Reason: Per Protocol Morphine Sulfate (Morphine Sulfate 4 Mg/Ml Syringe) 4 mg IVP ONCE STA Stop: 12/09/21 14:25 Last Admin: 12/09/21 14:40 Dose: 4 mg Documented by: MATTHEW Potassium Chloride (Potassium Chloride Er 20 Meq Tab.Er) 40 meq PO ONCE STA Stop: 12/09/21 15:01 Last Admin: 12/09/21 15:32 Dose: 40 meq Documented by: MATTHEW Objective - Vital Signs Vital signs: Vital Signs Temp 97.9 F 12/10/21 07:00 Pulse 77 12/10/21 08:00 Resp 17 12/10/21 08:00 BP 115/76 12/10/21 07:00 Pulse Ox 98 12/10/21 07:00 FiO2 Intake & Output 12/09/21 12/10/21 12/10/21 18:59 06:59 18:59 Intake Total 1670 Balance 1670 Weight 95.254 kg Intake: Intake, IV Titration 700 Amount Ampicillin-Sulbactam 3 gm 100 In Sodium Chloride 0.9% 100 ml @ 200 mls/hr IVPB Q6H [facility] Rx#:[id number] Cefepime 2 gm In Sodium 100 Chloride 0.9% 100 ml @ 25 mls/hr IVPB Q8H [facility] Rx#: [id number] Vancomycin 1,750 mg In 500 Sodium Chloride 0.9% 500 ml 500 ml @ 167 mls/hr IVPB Q12H [facility] Rx#: [id number] Oral 970 Other: Voiding Method Toilet # Voids 2 - Labs CBC & Chem 7: 12/10/21 06:03 12/09/21 14:18 Labs: Abnormal Lab Results - Last 24 Hours (Table) 12/09/21 12/09/21 Range/Units 14:18 14:18 WBC 16.9 H (3.8-10.6) k/uL Neutrophils # 14.1 H (1.3-7.7) k/uL Potassium 3.0 L (3.5-5.1) mmol/L Glucose 131 H (74-99) mg/dL Total Bilirubin 1.7 H (0.2-1.3) mg/dL
[2021-12-10 10:38] LABS: African American GFR (CKD) 114.6 (60.0-200.0); Anion Gap 12.1 mmol/L (10.00-18.00); BUN/Creat Ratio 15.3 Ratio (12.00-20.00); Blood Urea Nitrogen 13.2 mg/dL (9.0-27.0); Calcium 8.2 mg/dL (8.7-10.3); Carbon Dioxide 18.9 mmol/L (20.0-27.5); Non-African American GFR(CKD) 98.9 (60.0-200.0); Potassium 3.7 mmol/L (3.5-5.5)
[2021-12-10] MEDS: POTASSIUM CHLORIDE ER 10 MEQ TAB.ER.PRT PO SCH (10:57)
[2021-12-10] MEDS: FUROSEMIDE 20 MG TAB PO SCH (10:57)
--- NOTE | 2021-12-10 11:38 | P.CNOR ---
History of Present Illness - [facility] Consult date: 12/10/21 Consult reason: joint pain (Right elbow/forearm cellulitis.) History of present illness: This is a 51-year-old gentleman who was cleaning with a metal brush on 12/05/2021 and sustained a puncture wound to the elbow with one of the metal bristles which should have to be removed from the elbow. He clean the area f airly well at the time. He began noticing some increased redness to the elbow and swelling in the last couple of days. He was seen in the emergency department and admitted for IV antibiotics and orthopedic consultation. Past Medical History Past Medical History: Hypertension, Thyroid Disorder Additional Past Medical History / Comment(s): lipoma left shoulder History of Any Multi-Drug Resistant Organisms: None Reported Past Surgical History: Hernia Repair Additional Past Surgical History / Comment(s): abd hernia x3,colonoscopy Past Anesthesia/Blood Transfusion Reactions: No Reported Reaction Additional Past Anesthesia/Blood Transfusion Reaction / Comm: no hx blood transfusion Past Psychological History: No Psychological Hx Reported Smoking Status: Current every day smoker Past Alcohol Use History: Occasional Past Drug Use History: None Reported - Past Family History Mother Family Medical History: Cancer Additional Family Medical History / Comment(s): brain Medications and Allergies Home Medications Medication Instructions Recorded Confirmed Type Cyclobenzaprine [Flexeril] 10 mg PO TID PRN 02/12/19 12/09/21 History Benazepril HCl 40 mg PO HS 12/09/21 12/09/21 History Ibuprofen 800 mg PO Q8H PRN 12/09/21 12/09/21 History LORazepam [Ativan] 1 mg PO BID PRN 12/09/21 12/09/21 History Levothyroxine Sodium [Synthroid] 75 mcg PO HS 12/09/21 12/09/21 History Metoprolol Tartrate [Lopressor] 25 mg PO DAILY 12/09/21 12/09/21 History amLODIPine [Norvasc] 5 mg PO HS 12/09/21 12/09/21 History Allergies Allergy/AdvReac Type Severity Reaction Status Date / Time No Known Allergies Allergy Verified 12/09/21 15:26 Physical Examination This is a pleasant 51-year-old male in no acute distress. His is present at bedside. Exam of the elbow reveals erythema from just above the elbow down to the wrist. There is mild pitting edema to the forearm. There is very minimal fluctuance to the olecranon bursa. There is a scab from the puncture wound just above the elbow. He has near full extension of the elbow with flexion past 90. Neurovascular status to the upper extremity is intact. Results X-rays reveal no acute fracture or dislocation. There is soft tissue swelling noted on x-ray. No joint effusion noted. - Labs Labs: Abnormal Lab Results - Last 24 Hours (Table) 12/09/21 12/09/21 12/10/21 Range/Units 14:18 14:18 06:03 WBC 16.9 H 12.75 H (3.8-10.6) k/uL RBC 4.37 L (4.40-5.60) X 10*6/uL Hgb 12.9 L (13.0-17.0) g/dL Hct 39.1 L (39.6-50.0) % Immature Gran # 0.06 H (0.00-0.04) X 10*3/uL Neutrophils # 14.1 H 9.96 H (1.3-7.7) k/uL Potassium 3.0 L (3.5-5.1) mmol/L Carbon Dioxide (20.0-27.5) mmol/L Glucose 131 H (74-99) mg/dL Calcium (8.7-10.3) mg/dL Total Bilirubin 1.7 H (0.2-1.3) mg/dL 12/10/21 Range/Units 06:03 WBC (3.8-10.6) k/uL RBC (4.40-5.60) X 10*6/uL Hgb (13.0-17.0) g/dL Hct (39.6-50.0) % Immature Gran # (0.00-0.04) X 10*3/uL Neutrophils # (1.3-7.7) k/uL Potassium (3.5-5.1) mmol/L Carbon Dioxide 18.9 L (20.0-27.5) mmol/L Glucose 126 H (74-99) mg/dL Calcium 8.2 L (8.7-10.3) mg/dL Total Bilirubin (0.2-1.3) mg/dL H & H 12/09/21 12/10/21 Range/Units 14:18 06:03 Hgb 14.7 12.9 L (13.0-17.5) gm/dL Hct 42.8 39.1 L (39.0-53.0) % Result Diagrams: 12/10/21 06:03 12/10/21 06:03 Assessment and Plan (1) Cellulitis of right upper limb Current Visit: Yes Status: Acute Code(s): L03.113 - CELLULITIS OF RIGHT UPPER LIMB SNOMED Code(s): 595388162 (2) Cellulitis Current Visit: Yes Status: Acute Code(s): L03.90 - CELLULITIS, UNSPECIFIED SNOMED Code(s): 099991078 Plan: The clinical and x-ray findings are discussed the patient and his . I would like 24 more hours of antibiotics bionics and moist heat. I will make him nothing by mouth after midnight tonight in case symptoms do not improve . He requires surgical debridement.
[2021-12-10] MEDS: lisinopriL 20 MG TAB PO SCH (20:06)
[2021-12-10] MEDS: LEVOTHYROXINE 75 MCG TAB PO SCH (20:06)
--- NOTE | 2021-12-11 01:04 | P.PN ---
Subjective Progress Note Date: 12/10/21 Principal diagnosis: Right elbow olecranon bursitis/cellulitis Patient is a 51-year-old male presented to the hospital with right elbow pain swelling and redness has been diagnosed with right elbow olecranon bursitis and concerning for secondary cellulitis. On today's evaluation that is 12/10/2021, the patient denies having any fever or chills patient right elbow and upper extremity pain and swelling has slightly decreased, patient denies having any chest pain or shortness of breath or cough no abdominal pain no diarrhea Objective - Vital Signs Vital signs: Vital Signs Temp 97.9 F 12/10/21 07:00 Pulse 77 12/10/21 08:00 Resp 17 12/10/21 08:00 BP 115/76 12/10/21 07:00 Pulse Ox 98 12/10/21 07:00 FiO2 Intake & Output 12/09/21 12/10/21 12/10/21 18:59 06:59 18:59 Intake Total 1670 Balance 1670 Weight 95.254 kg Intake: Intake, IV Titration 700 Amount Ampicillin-Sulbactam 3 gm 100 In Sodium Chloride 0.9% 100 ml @ 200 mls/hr IVPB Q6H [facility] Rx#:[id number] Cefepime 2 gm In Sodium 100 Chloride 0.9% 100 ml @ 25 mls/hr IVPB Q8H [facility] Rx#: [id number] Vancomycin 1,750 mg In 500 Sodium Chloride 0.9% 500 ml 500 ml @ 167 mls/hr IVPB Q12H [facility] Rx#: [id number] Oral 970 Other: Voiding Method Toilet # Voids 2 - Exam GENERAL DESCRIPTION: Middle-age male lying in bed in no distress RESPIRATORY SYSTEM: Unlabored breathing , decreased breath sounds at bases HEART: S1 S2 regular rate and rhythm , ABDOMEN: Soft , no tenderness EXTREMITIES: Right upper extremity at the elbow swelling and redness is slightly decreased - Labs CBC & Chem 7: 12/10/21 06:03 12/10/21 06:03 Labs: Abnormal Lab Results - Last 24 Hours (Table) 12/09/21 12/09/21 12/10/21 Range/Units 14:18 14:18 06:03 WBC 16.9 H 12.75 H (3.8-10.6) k/uL RBC 4.37 L (4.40-5.60) X 10*6/uL Hgb 12.9 L (13.0-17.0) g/dL Hct 39.1 L (39.6-50.0) % Immature Gran # 0.06 H (0.00-0.04) X 10*3/uL Neutrophils # 14.1 H 9.96 H (1.3-7.7) k/uL Potassium 3.0 L (3.5-5.1) mmol/L Carbon Dioxide (20.0-27.5) mmol/L Glucose 131 H (74-99) mg/dL Calcium (8.7-10.3) mg/dL Total Bilirubin 1.7 H (0.2-1.3) mg/dL 12/10/21 Range/Units 06:03 WBC (3.8-10.6) k/uL RBC (4.40-5.60) X 10*6/uL Hgb (13.0-17.0) g/dL Hct (39.6-50.0) % Immature Gran # (0.00-0.04) X 10*3/uL Neutrophils # (1.3-7.7) k/uL Potassium (3.5-5.1) mmol/L Carbon Dioxide 18.9 L (20.0-27.5) mmol/L Glucose 126 H (74-99) mg/dL Calcium 8.2 L (8.7-10.3) mg/dL Total Bilirubin (0.2-1.3) mg/dL Assessment and Plan (1) Cellulitis of right upper limb Current Visit: Yes Status: Acute Code(s): L03.113 - CELLULITIS OF RIGHT UPPER LIMB SNOMED Code(s): 360084860 Plan: 1patient presented to hospital with sepsis since we did have a low-grade fever tachycardia and elevated white count source is right elbow/upper arm cellulitis and concerning for septic olecranon bursitis in this patient with recent puncture wound from a metallic object more likely from gram-positive skin queta and less likely gram-negative infection. 2patient will benefit from I&D of the right elbow olecranon bursitis to decrease bioburden of infection and deep culture. 3patient will continue vancomycin pharmacy to dose cefepime Family the bedside questions were answered Time with Patient: Less than 30
[2021-12-11] MEDS: CEFEPIME 2 GM in SODIUM CHLORIDE 0.9% 100 ML IVPB SCH ×3 (01:26→17:23)
[2021-12-11] MEDS: VANCOMYCIN 1,750 MG in SODIUM CHLORIDE 0.9% 500 ML 500 ML IVPB SCH ×2 (05:31→17:23)
[2021-12-11 06:38] LABS: African American GFR (CKD) >90 (>60 ml/min/1.73 sqM); Anion Gap 7 mmol/L; Blood Urea Nitrogen 11 mg/dL (9-20); Carbon Dioxide 22 mmol/L (22-30); Chloride 108 mmol/L (98-107); Glucose 116 mg/dL (74-99); Non-African American GFR(CKD) >90 (>60 ml/min/1.73 sqM); Potassium 3.9 mmol/L (3.5-5.1); Sodium 137 mmol/L (137-145)
[2021-12-11] MEDS: METOPROLOL TARTRATE 25 MG TAB PO SCH (08:21)
[2021-12-11] MEDS: POTASSIUM CHLORIDE ER 10 MEQ TAB.ER.PRT PO SCH (08:21)
[2021-12-11] MEDS: FUROSEMIDE 20 MG TAB PO SCH (08:21)
--- NOTE | 2021-12-11 08:22 | P.PN ---
Subjective Progress Note Date: 12/11/21 Principal diagnosis: Right elbow/forearm cellulitis. Olecranon bursitis right elbow. This is a pleasant 51-year-old male who we are following regarding right upper extremity cellulitis. He has been on IV antibiotics since admission on 12/09/2021 with slight improvement in the erythema and swelling to the right upper extremity. He continues to have pain and swelling to the olecranon bursa. K pad was ordered yesterday. Blood cultures are showing no growth. Vital signs are stable. He has been afebrile since yesterday. White blood cell count is coming down a bit. White blood cell count today is 12.75. Objective - Vital Signs Vital signs: Vital Signs Temp 98.2 F 12/11/21 07:00 Pulse 81 12/11/21 07:00 Resp 16 12/11/21 07:00 BP 141/78 12/11/21 07:00 Pulse Ox 97 12/11/21 07:00 FiO2 Intake & Output 12/10/21 12/11/21 12/11/21 18:59 06:59 18:59 Intake Total 296 Balance 296 Intake: Oral 296 Other: Voiding Method Toilet # Voids 3 2 - Exam This is a pleasant 51-year-old male in no acute distress. He is alert and oriented 3. Exam of the right upper extremity reveals that there is improvement in the erythema to the arm. He continues to have some fluctuance and swelling about the olecranon bursa. He continues to have slight pitting edema to the upper forearm. Elbow range of motion is near full extension to 90 of flexion. He has full wrist and finger motion without difficulty or pain. Neurovascular status to the upper extremity is intact. - Labs CBC & Chem 7: 12/10/21 06:03 12/11/21 06:08 Labs: Abnormal Lab Results - Last 24 Hours (Table) 12/10/21 12/10/21 12/11/21 Range/Units 06:03 06:03 06:08 WBC 12.75 H (4.50-10.00) X 10*3/uL RBC 4.37 L (4.40-5.60) X 10*6/uL Hgb 12.9 L (13.0-17.0) g/dL Hct 39.1 L (39.6-50.0) % Immature Gran # 0.06 H (0.00-0.04) X 10*3/uL Neutrophils # 9.96 H (1.80-7.70) X 10*3/uL Chloride 108 H (98-107) mmol/L Carbon Dioxide 18.9 L (20.0-27.5) mmol/L Glucose 126 H 116 H (70-110) mg/dL Calcium 8.2 L 8.0 L (8.7-10.3) mg/dL Microbiology - Last 24 Hours (Table) 12/09/21 14:18 Blood Culture - Preliminary Blood No Growth after 24 hours 12/09/21 14:18 Blood Culture - Preliminary Blood No Growth after 24 hours Assessment and Plan (1) Cellulitis of right upper limb Current Visit: Yes Status: Acute Code(s): L03.113 - CELLULITIS OF RIGHT UPPER LIMB SNOMED Code(s): 893395373 (2) Cellulitis Current Visit: Yes Status: Acute Code(s): L03.90 - CELLULITIS, UNSPECIFIED SNOMED Code(s): 364924757 Plan: The clinical and x-ray findings are discussed the patient. It is recommended he have irrigation and debridement of the olecranon bursa. He has been scheduled for today.
[2021-12-11] MEDS: HYDROmorphone 0.5 MG/0.5 ML SYRINGE IVP PRN (08:29)
[2021-12-11] MEDS ORDERED: HYDROmorphone (PF) 1 MG/ML ONE (09:44)
[2021-12-11] MEDS ORDERED: MIDAZOLAM 2 MG/2 ML VIAL ONE (09:44)
[2021-12-11] MEDS ORDERED: fentaNYL (PF) 50 MCG/ML 2 ML AMP ONE (09:44)
[2021-12-11] MEDS ORDERED: ONDANSETRON 4 MG/2 ML VIAL ONE (09:44)
[2021-12-11] MEDS ORDERED: PROPOFOL 10 MG/ML 20 ML VIAL IV ONE (09:44)
[2021-12-11] MEDS ORDERED: SUCCINYLCHOLINE CHLORIDE 100 MG/5 ML SYR IV ONE (09:44)
[2021-12-11] MEDS ORDERED: LIDOCAINE 2% INJ 20 MG/ML (2 ML VIAL) ONE (09:44)
[2021-12-11] MEDS ORDERED: IV FLUID CONTINUATION 900 ML IV ONE (09:46)
[2021-12-11] MEDS ORDERED: HYDROcodone/APAP 5-325MG 1 EACH TAB PO PRN ×2 (09:56)
[2021-12-11] MEDS ORDERED: HYDROmorphone 0.5 MG/0.5 ML SYRINGE IVP PRN ×2 (09:56)
--- NOTE | 2021-12-11 10:06 | P.OP ---
Date of Procedure: 12/11/21 Procedure(s) Performed: PREOPERATIVE DIAGNOSES: 1. Right elbow septic olecranon bursitis, diabetic patient POSTOPERATIVE DIAGNOSES: 1. Right elbow septic olecranon bursitis, diabetic patient PROCEDURES PERFORMED: 1. Right elbow olecranon bursectomy 2. Right elbow septic olecranon bursitis wound irrigation and debridement (sharp debridement with knife: skin, subcutaneous tissue, bursal tissue) ANESTHESIA: Gen. BRIDGE IRONWORKER: None COMPLICATIONS: None ESTIMATED BLOOD LOSS: 1 ml DISPOSITION: To post-anesthesia care unit INDICATIONS: Esau is a 51-year-old male smoker with a history of infection involving the right olecranon bursa. Although the situation appears to be slightly improving somewhat with current antibiotic treatment, Dr. Santiago from infectious diseases has recommended operative intervention for the elbow which has a small area of fluctuance indicating probable septic olecranon bursitis. I described the typical path of olecranon bursal tissue in this kind of situation with likely persistent lingering problems for the foreseeable future if antibiotic treatment alone is utilized. For these reasons and after full and detailed explanation of the risks and potential complications, the patient wishes to proceed with operative intervention. I have described the risks and potential complications as being inclusive of, but not limited to: Bleeding, infection, scarring, discomfort, blood vessel and/or nerve damage, persistent infection, osteomyelitis, involvement of the tendon of the triceps, stiffness, persistent swelling, weakness, sepsis, chronic wound, loss of limb and/or life, blood clot, pulmonary embolism, and other risks. The patient is aware these risks and wishes to proceed with surgery. Consent form has been signed. PROCEDURE: After appropriate consent was obtained, the patient was taken to the operating room placed in the supine position. Anesthesia was initiated, and after confirmation of adequate anesthesia, the patient was carefully positioned. Care was taken to make sure that all pressure points were adequately padded. Pr epping and draping were completed in the usual aseptic fashion using a combination of Hibiclens prep and ChloraPrep. Timeout was called, confirming patient identity, side, procedure, and administration of antibiotics. Antibiotic treatment had been initiated on the floor and therefore no further antibiotics were given. An incision was created directly over the olecranon bursa and through the healed wound on the tip of the olecranon. Incision was carried through skin and into subcu tissues and down to bursa. Bursal tissue was thickened presumably from chronic inflammation and infection and therefore using sharp dissection with an Allis clamp, rat-tooth pickups, and dissecting scissors and knife, this infected tissue was removed entirely. Preliminary irrigation was performed using pulsa tile saline. Final debridement was then performed , using a knife and rongeur. There was no apparent involvement of the triceps tendon or olecranon bone. Wound was loosely closed over a Alba drain using interrupted 4-0 nylon sutures. Prevena wound VAC was then applied. Sterile dressing was applied followed by minimally compressive Oskar wrap and sling. Patient tolerated the procedure well and taken to recovery room in stable condition. Sponge and needle counts were correct
[2021-12-11] MEDS ORDERED: ceFAZolin 3,000 MG in SODIUM CHLORIDE 0.9% IRRIGATIO 3,000 ML IRRIGATION ONE (10:18)
[2021-12-11 10:19] LABS: Basophils # (A) 0.1 k/uL (0-0.2); Basophils % (A) 1 %; Eosinophils # (A) 0.2 k/uL (0-0.7); Eosinophils % (A) 3 %; HCT 38.1 % (39.0-53.0); HGB 12.6 gm/dL (13.0-17.5); Lymphocytes # (A) 1.4 k/uL (1.0-4.8); Lymphocytes % (A) 15 %; MCH 29.6 pg (25.0-35.0); MCHC 33.1 g/dL (31.0-37.0); MCV 89.6 fL (80.0-100.0); Mean Platelet Volume 9.2; Monocytes # (A) 0.5 k/uL (0-1.0); Monocytes % (A) 5 %; Neutrophils # (A) 7.3 k/uL (1.3-7.7); Neutrophils % (A) 76 %; Platelet Count 193 k/uL (150-450); RBC 4.25 m/uL (4.30-5.90); RDW 13.1 % (11.5-15.5); WBC 9.7 k/uL (3.8-10.6)
--- NOTE | 2021-12-11 12:07 | P.PN ---
Subjective Progress Note Date: 12/11/21 Chief Complaint: Right arm redness, worsening, after puncture wound metal brush right elbow. This is a 51-year-old gentleman, patient of Dr. Rust, known history of hypothyroidism, hypertension, current tobacco use, who was well until 4 days prior to admission where she had a puncture wound, with a metal brush use for automotive cleaning on 12/05/2021. Patient has swelling and tenderness, effusion in the right elbow, with small redness at that time, however this has Been worse, ascending to the axillae region, and down to the right wrist now circumferential in diameter, with swelling tenderness, he was seen in urgent care, was given Rocephin was subsequently sent to emergency room for admission. Patient needs an up-to-date tetanus vaccination, which would be offered during this admission. Currently the found the mental brush his that she took out from the skin, unknown how deep the brushes were located, x-rays failed to reveal any metallic foreign body consult with Dr. Osborne, and orthopedic surgeon 12/10: Patient is much better, however she did not sleep last night, pain is lessened, redness is less and, still with edema, induration and swelling is s till present, however diminished in intensity. Start melatonin, start Lasix 40 mg daily, discontinue amlodipine, patient is off Unasyn, and replaced to Seprafilm, vancomycin infusing, with pharmacy to dose. Seen by infectious disease Dr. Osborne, pending orthopedic consultation. Will need intraoperative cultures wtih bursal debridement, holding off CAT scan at this time of elbow 12/11: Patient underwent intraoperative surgical debridement, right olecranon bursa, with cultures obtained, she denies any fever or chills no nausea no vomiting diarrhea, patient has insomnia, melatonin that was given is not helping out, increase to 10 mg melatonin. Patient has pain management as well, and bowel program. Vitals are stable, blood cultures are currently pending negative, culture sent fr olecranon on 12/11/2021 Review of Systems REVIEW OF SYSTEMS Constitutional: No fever, no chills, no night sweats. No weight change. generalized weakness, EENT: No headache. No blurred vision or double vision, no loss of vision. No loss of Hearing, no ringing in the ears, no dizziness. No nasal drainage or congestion. No epistaxis. No sore throat. Lungs: No shortness of breath, cough, no sputum production. No wheezing. Cardiovascular: No chest pain, no lower extremity edema. No palpitations. No paroxysmal nocturnal dyspnea. No orthopnea. No lightheadedness or dizziness. No syncopal episodes. Abdominal: No abdominal pain. No nausea, vomiting. No diarrhea. No constipation. No bloody or tarry stools. No loss of appetite. Genitourinary: No dysuria, increased frequency, urgency. No urinary retention. Musculoskeletal: No myalgias. + muscle weakness, + gait dysfunction, no frequent falls. No back pain. No neck pain. Integumentary: , no lesions. No rash or pruritus. No unusual bruising. No change in hair or nails. Acute wound as described in the right upper extremity Neurologic: No aphasia. No facial droop. noted change in mentation. No head injury. No headache. No paralysis. No paresthesia. Psychiatric: No depression. No anxiety. No mood swings. Endocrine: No abnormal blood sugars. No weight change. No excessive sweating or thirst. No cold intolerance. General Exam General appearance: alert, in no apparent distress no polyuria no jaundice no cyanosis Head exam: Present: atraumatic Respiratory exam: Absent: respiratory distress, accessory muscle use clear to auscultation bilaterally Cardiovascular Exam: Present: tachycardia regular no ectopy no murmurs Extremities exam: Present: normal capillary refill right extremity, with the elbow, to puncture wound, less than 0.5 cm on the upper border, and 3 mm on the lower border, with circumferential erythema, swelling tenderness, effusion in the olecranon region, no lymphadenopathy, be upper extremity now has an inner ascending cellulitis and phlebitis, up to the axilla and down to the right wrist minutes range of motion, elbow Forearm Wrist exam: Present: tenderness, swelling, erythema with diminished range of motion Vascular: Present: normal capillary refill, radial pulse. Absent: vascular compromise Neurological exam: Present: alert, oriented X3, normal gait Psychiatric exam: Present: normal affect, normal mood Skin exam: Present: warm, dry. Absent: cyanosis, except for the right Maria Esther as described above Assessment and plan 1 acute cellulitis suspected septic , olecranon bursitis right elbow status post surgical debridement, and intraoperative cultures, 12/11/2021 with small effusion of the upper extremity involving upper ext elbow and forearm, ending at the wrist right side, involving a puncture wound with a metal, from initial injury 12/05/2021, with circumferential cellulitis, and worrisome complications include sepsis/blood poisoning. Patient will be started on now on cefepime, for gram-negative coverage as per infectious disease and vancomycin, infectious disease consult Dr. Osborne and orthopedic consult, regarding the possible foreign body metallic object, right elbow x-rays failed to reveal any foreign body at this time however these are very tiny metal brush 2. Hypertension with isolated upper extremity edema, start Lasix, discontinue amlodipine 5 mg daily, metoprolol 25 mg daily, this is a 40 mg 3. Hypothyroidism levothyroxine 75 Anxiety disorder, Ativan 1 mg twice a day when necessary 4. DVT prophylaxis with early ambulation, monitor for compression or compartment syndrome upper extremity, at the puncture maria del carmen with cellulitis 5 GI prophylaxis Pepcid 6 Expected length of stay, 2 nights or more, depending on progression of recovery from the cellulitis 7 Tetanus vaccination updated, with a current puncture wound from a metal object Current Medications Acetaminophen (Acetaminophen Tab 325 Mg Tab) 650 mg PO Q6HR PRN PRN Reason: Mild Pain or Fever > 100.5 Last Admin: 12/10/21 01:52 Dose: 650 mg Hydrocodone Bitart/Acetaminophen (Hydrocodone/Apap 5-325mg 1 Each Tab) 1 each PO Q6HR PRN PRN Reason: Pain Scale 1 to 5 Hydrocodone Bitart/Acetaminophen (Hydrocodone/Apap 5-325mg 1 Each Tab) 2 each PO Q6HR PRN PRN Reason: Pain Scale 6 to 10 Cyclobenzaprine HCl (Cyclobenzaprine 10 Mg Tab) 10 mg PO TID PRN PRN Reason: Pain Furosemide (Furosemide 20 Mg Tab) 20 mg PO DAILY [facility] Last Admin: 12/11/21 08:21 Dose: 20 mg Hydromorphone HCl (Hydromorphone 0.5 Mg/0.5 Ml Syringe) 0.25 mg IVP Q3HR PRN PRN Reason: Pain Scale 1 to 3 Hydromorphone HCl (Hydromorphone 1 Mg/Ml 1 Ml Syringe) 1 mg IVP Q3HR PRN PRN Reason: Pain Scale 7 to 10 Hydromorphone HCl (Hydromorphone 0.5 Mg/0.5 Ml Syringe) 0.5 mg IVP Q3HR PRN PRN Reason: Pain Scale 4 to 6 Vancomycin HCl 1,750 mg/ (Sodium Chloride) 500 mls @ 167 mls/hr IVPB Q12H [facility] Last Admin: 12/11/21 05:31 Dose: 167 mls/hr Cefepime HCl 2 gm/ Sodium (Chloride) 100 mls @ 25 mls/hr IVPB Q8H [facility]; Protocol Last Admin: 12/11/21 11:25 Dose: Not Given Levothyroxine Sodium (Levothyroxine 75 Mcg Tab) 75 mcg PO HS [facility] Last Admin: 12/10/21 20:06 Dose: 75 mcg Lisinopril (Lisinopril 20 Mg Tab) 40 mg PO [facility] Last Admin: 12/10/21 20:06 Dose: 40 mg Lorazepam (Lorazepam 1 Mg Tab) 1 mg PO BID PRN PRN Reason: Anxiety Metoprolol Tartrate (Metoprolol Tartrate 25 Mg Tab) 25 mg PO DAILY [facility] Last Admin: 12/11/21 08:21 Dose: 25 mg Miscellaneous Information (Vancomycin Trough Due 1 Each Misc) 0 each MISCELLANE DIRECTED ONE Stop: 12/11/21 17:01 Naloxone HCl (Naloxone 0.4 Mg/Ml 1 Ml Vial) 0.2 mg IV Q2M PRN PRN Reason: Opioid Reversal Potassium Chloride (Potassium Chloride Er 10 Meq Tab.Er.Prt) 10 meq PO DAILY [facility] Last Admin: 12/11/21 08:21 Dose: 10 meq Abnormal Lab Results 12/11/21 12/11/21 06:08 06:08 WBC 9.7 RBC 4.25 L Hgb 12.6 L Hct 38.1 L MCV 89.6 MCH 29.6 MCHC 33.1 RDW 13.1 Plt Count 193 MPV 9.2 Neutrophils % 76 Lymphocytes % 15 Monocytes % 5 Eosinophils % 3 Basophils % 1 Neutrophils # 7.3 Lymphocytes # 1.4 Monocytes # 0.5 Eosinophils # 0.2 Basophils # 0.1 Sodium 137 Potassium 3.9 Chloride 108 H Carbon Dioxide 22 Anion Gap 7 BUN 11 Creatinine 0.75 Est GFR (CKD-EPI)AfAm >90 Est GFR (CKD-EPI)NonAf >90 Glucose 116 H Calcium 8.0 L Vital Signs - 24 hr 12/10/21 12/10/21 12/10/21 13:41 14:00 19:00 Temperature 98.5 F 98.7 F Pulse Rate [ Candle Making Supervisor ] Pulse Rate [ 79 79 96 Pulse Oximetery ] Respiratory 16 16 18 Rate Blood Pressure 127/79 142/83 [Left Arm Sitting] Blood Pressure [Left Arm Standing] Blood Pressure [Left Arm] O2 Sat by Pulse 96 96 Oximetry 12/11/21 12/11/21 12/11/21 02:05 07:00 08:29 Temperature 98.7 F 98.2 F Pulse Rate [ Candle Making Supervisor ] Pulse Rate [ 82 81 Pulse Oximetery ] Respiratory 18 16 16 Rate Blood Pressure [Left Arm Sitting] Blood Pressure [Left Arm Standing] Blood Pressure 147/86 141/78 [Left Arm] O2 Sat by Pulse 94 L 97 Oximetry 12/11/21 12/11/21 12/11/21 10:38 10:45 11:01 Temperature 97.3 F L Pulse Rate [ 67 68 73 Candle Making Supervisor ] Pulse Rate [ Pulse Oximetery ] Respiratory 14 14 14 Rate Blood Pressure [Left Arm Sitting] Blood Pressure 154/72 154/70 120/66 [Left Arm Standing] Blood Pressure [Left Arm] O2 Sat by Pulse 94 L 94 L 96 Oximetry 12/11/21 11:30 Temperature 98.1 F Pulse Rate [ Candle Making Supervisor ] Pulse Rate [ 67 Pulse Oximetery ] Respiratory 18 Rate Blood Pressure [Left Arm Sitting] Blood Pressure [Left Arm Standing] Blood Pressure 141/78 [Left Arm] O2 Sat by Pulse 96 Oximetry Objective - Vital Signs Vital signs: Vital Signs Temp 98.1 F 12/11/21 11:30 Pulse 67 12/11/21 11:30 Resp 18 12/11/21 11:30 BP 141/78 12/11/21 11:30 Pulse Ox 96 12/11/21 11:30 FiO2 Intake & Output 12/10/21 12/11/21 12/11/21 18:59 06:59 18:59 Intake Total 296 501 Output Total 1 Balance 296 500 Weight 95.254 kg Intake: IV 501 Oral 296 Output: Estimated Blood Loss 1 Other: Voiding Method Toilet Toilet # Voids 3 2 - Labs CBC & Chem 7: 12/11/21 06:08 12/11/21 06:08 Labs: Abnormal Lab Results - Last 24 Hours (Table) 12/11/21 12/11/21 Range/Units 06:08 06:08 RBC 4.25 L (4.30-5.90) m/uL Hgb 12.6 L (13.0-17.5) gm/dL Hct 38.1 L (39.0-53.0) % Chloride 108 H (98-107) mmol/L Glucose 116 H (74-99) mg/dL Calcium 8.0 L (8.4-10.2) mg/dL Microbiology - Last 24 Hours (Table) 12/09/21 14:18 Blood Culture - Preliminary Blood No Growth after 24 hours 12/09/21 14:18 Blood Culture - Preliminary Blood No Growth after 24 hours
[2021-12-11] MEDS: HYDROmorphone 1 MG/ML 1 ML SYRINGE IVP PRN ×2 (14:55→19:48)
[2021-12-11] MEDS ORDERED: VANCOMYCIN TROUGH DUE 1 EACH MISC MISCELLANE ONE (17:00)
[2021-12-11] MEDS: LEVOTHYROXINE 75 MCG TAB PO SCH (19:47)
[2021-12-11] MEDS: lisinopriL 20 MG TAB PO SCH (19:47)
[2021-12-11] MEDS ORDERED: MELATONIN 3 MG TABLET PO SCH (21:00)
[2021-12-12] MEDS: MELATONIN 5 MG TABLET PO SCH ×2 (00:35→20:10)
[2021-12-12] MEDS: HYDROmorphone 1 MG/ML 1 ML SYRINGE IVP PRN ×2 (00:37→20:11)
[2021-12-12] MEDS: CEFEPIME 2 GM in SODIUM CHLORIDE 0.9% 100 ML IVPB SCH ×3 (02:35→17:09)
[2021-12-12] MEDS: VANCOMYCIN 1,750 MG in SODIUM CHLORIDE 0.9% 500 ML 500 ML IVPB SCH ×2 (06:01→18:27)
[2021-12-12] MEDS ORDERED: amLODIPine 5 MG TAB PO STA (08:23)
[2021-12-12] MEDS: FUROSEMIDE 20 MG TAB PO SCH (08:39)
[2021-12-12] MEDS: METOPROLOL TARTRATE 25 MG TAB PO SCH (08:39)
[2021-12-12] MEDS: POTASSIUM CHLORIDE ER 10 MEQ TAB.ER.PRT PO SCH (08:39)
--- NOTE | 2021-12-12 08:45 | P.PN ---
Subjective Progress Note Date: 12/12/21 Principal diagnosis: Right elbow/forearm cellulitis. Olecranon bursitis right elbow. Postoperative I&D right elbow. This is a pleasant 51-year-old male who we are following regarding right upper extremity cellulitis. He has been on IV antibiotics since admission on 12/09/2021 with slight improvement in the erythema and swelling to the right upper extremity. He continues to have pain and swelling to the olecranon bursa. K pad was ordered yesterday. Blood cultures are showing no growth. Vital signs are stable. He has been afebrile since yesterday. White blood cell count is coming down a bit. 12/12/2021: The patient is status post I&D of the right elbow and application of Prevena wound VAC on 12/11/2021. He states that his arm is feeling better. He has no new complaints or concerns today. Vital signs are stable. White blood cell count is down to 9.7. Objective - Vital Signs Vital signs: Vital Signs Temp 98.7 F 12/12/21 07:46 Pulse 80 12/12/21 07:46 Resp 16 12/12/21 08:00 BP 151/93 12/12/21 07:46 Pulse Ox 95 12/12/21 07:46 FiO2 Intake & Output 12/11/21 12/12/21 12/12/21 18:59 06:59 18:59 Intake Total 501 Output Total 1 Balance 500 Weight 95.254 kg Intake: IV 501 Output: Estimated Blood Loss 1 Other: Voiding Method Toilet Toilet # Voids 1 2 1 - Exam This is a pleasant 51-year-old male in no acute distress. He is alert and oriented 3. Exam of the right upper extremity reveals that there is improvement in the erythema to the arm. Wound VAC is in place. He continues to have slight pitting edema to the upper forearm. Elbow range of motion is limited secondary to the wound VAC. He has full wrist and finger motion without difficulty or pain. Neurovascular status to the upper extremity is intact. - Labs CBC & Chem 7: 12/11/21 06:08 12/11/21 06:08 Labs: Abnormal Lab Results - Last 24 Hours (Table) 12/11/21 Range/Units 06:08 RBC 4.25 L (4.30-5.90) m/uL Hgb 12.6 L (13.0-17.5) gm/dL Hct 38.1 L (39.0-53.0) % Microbiology - Last 24 Hours (Table) 12/11/21 10:26 Gram Stain - Preliminary Elbow - Right Wound Culture - Preliminary 12/11/21 10:25 Gram Stain - Preliminary Elbow - Right Wound Culture - Preliminary 12/11/21 10:25 Anaerobic Culture - Preliminary Elbow - Right 12/11/21 10:26 Anaerobic Culture - Preliminary Elbow - Right 12/09/21 14:18 Blood Culture - Preliminary Blood No Growth after 48 hours 12/09/21 14:18 Blood Culture - Preliminary Blood No Growth after 48 hours Assessment and Plan (1) Cellulitis of right upper limb Current Visit: Yes Status: Acute Code(s): L03.113 - CELLULITIS OF RIGHT UPPER LIMB SNOMED Code(s): 139836320 (2) Cellulitis Current Visit: Yes Status: Acute Code(s): L03.90 - CELLULITIS, UNSPECIFIED SNOMED Code(s): 230842395 Plan: The clinical findings are discussed the patient. He may be discharged home when cleared with internal medicine and infectious disease. He is to follow-up in one week for wound VAC removal.
--- NOTE | 2021-12-12 11:59 | P.PN ---
Subjective Progress Note Date: 12/12/21 This is a 51-year-old gentleman, patient of Dr. Rust, known history of hypothyroidism, hypertension, current tobacco use, who was well until 4 days prior to admission where she had a puncture wound, with a metal brush use for automotive cleaning on 12/05/2021. Patient has swelling and tenderness, effusion in the right elbow, with small redness at that time, however this has Been worse, ascending to the axillae region, and down to the right wrist now circumferential in diameter, with swelling tenderness, he was seen in urgent care, was given Rocephin was subsequently sent to emergency room for admission. Patient needs an up-to-date tetanus vaccination, which would be offered during this admission. Currently the found the mental brush his that she took out from the skin, unknown how deep the brushes were located, x-rays failed to reveal any metallic foreign body consult with Dr. Osborne, and orthopedic surgeon 12/10: Patient is much better, however she did not sleep last night, pain is lessened, redness is less and, still with edema, induration and swelling is still present, however diminished in intensity. Start melatonin, start Lasix 40 mg daily, discontinue amlodipine, patient is off Unasyn, and replaced to Seprafilm, vancomycin infusing, with pharmacy to dose. Seen by infectious disease Dr. Osborne, pending orthopedic consultation. Will need intraoperative cultures wtih bursal debridement, holding off CAT scan at this time of elbow 12/11: Patient underwent intraoperative surgical debridement, right olecranon bursa, with cultures obtained, she denies any fever or chills no nausea no vomiting diarrhea, patient has insomnia, melatonin that was given is not helping out, increase to 10 mg melatonin. Patient has pain management as well, and bowel program. Vitals are stable, blood cultures are currently pending negative, culture sent fr olecranon on 12/11/202112/12: Yesterday, patient underwent right elbow olecranon bursectomy with irrigation and debridement by Dr. Clay. All cultures from that procedure aren't process. Previous blood cultures obtained on admission are showing no growth at 48 hours. Patient has been afebrile, heart rate 88, blood pressure 167/94, pulse ox 95% on room air. Patient is continued on cefepime and vancomycin per Dr. Osborne. Review of Systems Constitutional: No fever, no chills, no night sweats. No weight change. generalized weakness, EENT: No headache. No blurred vision or double vision, no loss of vision. No loss of Hearing, no ringing in the ears, no dizziness. No nasal drainage or congestion. No epistaxis. No sore throat. Lungs: No shortness of breath, cough, no sputum production. No wheezing. Cardiovascular: No chest pain, no lower extremity edema. No palpitations. No p aroxysmal nocturnal dyspnea. No orthopnea. No lightheadedness or dizziness. No syncopal episodes. Abdominal: No abdominal pain. No nausea, vomiting. No diarrhea. No constipation. No bloody or tarry stools. No loss of appetite. Genitourinary: No dysuria, increased frequency, urgency. No urinary retention. Musculoskeletal: No myalgias. + muscle weakness, + gait dysfunction, no frequent falls. No back pain. No neck pain. Integumentary: , no lesions. No rash or pruritus. No unusual bruising. No change in hair or nails. Acute wound as described in the right upper extremity Neurologic: No aphasia. No facial droop. noted change in mentation. No head injury. No headache. No paralysis. No paresthesia. Psychiatric: No depression. No anxiety. No mood swings. Endocrine: No abnormal blood sugars. No weight change. No excessive sweating or thirst. No cold intolerance. General Exam General appearance: alert, in no apparent distress no polyuria no jaundice no cyanosis Head exam: Present: atraumatic Respiratory exam: Absent: respiratory distress, accessory muscle use clear to auscultation bilaterally Cardiovascular Exam: Present: tachycardia regular no ectopy no murmurs Extremities exam: Present: normal capillary refill right upper extremity, with the elbow surgical wound, edema, large dressing in place, drain with serosanguin eous return. Forearm Wrist exam: Present: tenderness, swelling, erythema with diminished range of motion Vascular: Present: normal capillary refill, radial pulse. Absent: vascular compromise Neurological exam: Present: alert, oriented X3, normal gait Psychiatric exam: Present: normal affect, normal mood Skin exam: Present: warm, dry. Absent: cyanosis Assessment and plan 1 acute cellulitis suspected septic , olecranon bursitis right elbow status post surgical debridement, and intraoperative cultures, 12/11/2021. Initial injury puncture wound with a metal, from initial injury 12/05/2021, with circumferential cellulitis, and worrisome complications include sepsis. Patient is continued on cefepime and vancomycin per infectious disease. 2. Hypertension with isolated upper extremity edema, start Lasix, resume amlodipine 5 mg daily, continue metoprolol 25 mg daily, lisinopril 40 mg 3. Hypothyroidism levothyroxine 75 4. DVT prophylaxis with early ambulation, monitor for compression or compartment syndrome upper extremity, at the puncture maria del carmen with cellulitis 5 GI prophylaxis Pepcid 6. Generalized Anxiety disorder, Ativan 1 mg twice a day when necessary 7 Tetanus vaccination updated, with a current puncture wound from a metal object DISCHARGE PLAN Home possibly with IV antibiotics. Impression and plan of care have been directed as dictated by the signing physician. Wanda Peña nurse practitioner acting as scribe for signing physician. Objective - Vital Signs Vital signs: Vital Signs Temp 98.1 F 12/12/21 00:35 Pulse 88 12/12/21 00:35 Resp 16 12/12/21 00:35 BP 167/94 12/12/21 00:35 Pulse Ox 95 12/12/21 00:35 FiO2 Intake & Output 12/11/21 12/12/21 12/12/21 18:59 06:59 18:59 Intake Total 501 Output Total 1 Balance 500 Weight 95.254 kg Intake: IV 501 Output: Estimated Blood Loss 1 Other: Voiding Method Toilet # Voids 1 2 - Labs CBC & Chem 7: 12/11/21 06:08 12/11/21 06:08 Labs: Abnormal Lab Results - Last 24 Hours (Table) 12/11/21 Range/Units 06:08 RBC 4.25 L (4.30-5.90) m/uL Hgb 12.6 L (13.0-17.5) gm/dL Hct 38.1 L (39.0-53.0) % Microbiology - Last 24 Hours (Table) 12/11/21 10:26 Gram Stain - Preliminary Elbow - Right Wound Culture - Preliminary 12/11/21 10:25 Gram Stain - Preliminary Elbow - Right Wound Culture - Preliminary 12/11/21 10:25 Anaerobic Culture - Preliminary Elbow - Right 12/11/21 10:26 Anaerobic Culture - Preliminary Elbow - Right 12/09/21 14:18 Blood Culture - Preliminary Blood No Growth after 48 hours 12/09/21 14:18 Blood Culture - Preliminary Blood No Growth after 48 hours
--- NOTE | 2021-12-12 12:22 | P.PN ---
Subjective Progress Note Date: 12/11/21 Principal diagnosis: Right elbow olecranon bursitis/cellulitis Patient is a 51-year-old male presented to the hospital with right elbow pain swelling and redness has been diagnosed with right elbow olecranon bursitis and concerning for secondary cellulitis. Patient is status post right elbow bursectomy completed this morning 12/11/2021 On today's evaluation that is 12/11/2021, the patient remains to be afebrile, patient denies any worsening pain to the right elbow , patient denies having any chest pain or shortness of breath or cough no abdominal pain no diarrhea Objective - Vital Signs Vital signs: Vital Signs Temp 97.6 F 12/11/21 12:30 Pulse 71 12/11/21 13:00 Resp 16 12/11/21 12:30 BP 148/89 12/11/21 13:00 Pulse Ox 95 12/11/21 12:30 FiO2 Intake & Output 12/10/21 12/11/21 12/11/21 18:59 06:59 18:59 Intake Total 296 501 Output Total 1 Balance 296 500 Weight 95.254 kg Intake: IV 501 Oral 296 Output: Estimated Blood Loss 1 Other: Voiding Method Toilet Toilet # Voids 3 2 1 - Exam GENERAL DESCRIPTION: Middle-age male lying in bed in no distress RESPIRATORY SYSTEM: Unlabored breathing , decreased breath sounds at bases HEART: S1 S2 regular rate and rhythm , ABDOMEN: Soft , no tenderness EXTREMITIES: Right elbow is currently dressed in the OR dressing - Labs CBC & Chem 7: 12/11/21 06:08 12/11/21 06:08 Labs: Abnormal Lab Results - Last 24 Hours (Table) 12/11/21 12/11/21 Range/Units 06:08 06:08 RBC 4.25 L (4.30-5.90) m/uL Hgb 12.6 L (13.0-17.5) gm/dL Hct 38.1 L (39.0-53.0) % Chloride 108 H (98-107) mmol/L Glucose 116 H (74-99) mg/dL Calcium 8.0 L (8.4-10.2) mg/dL Microbiology - Last 24 Hours (Table) 12/09/21 14:18 Blood Culture - Preliminary Blood No Growth after 24 hours 07/02/22 14:18 Blood Culture - Preliminary Blood No Growth after 24 hours Assessment and Plan (1) Cellulitis of right upper limb Current Visit: Yes Status: Acute Code(s): L03.113 - CELLULITIS OF RIGHT UPPER LIMB SNOMED Code(s): 708298537 Plan: 1patient presented to hospital with sepsis since we did have a low-grade fever tachycardia and elevated white count source is right elbow/upper arm cellulitis and concerning for septic olecranon bursitis in this patient with recent puncture wound from a metallic object more likely from gram-positive skin queta and less likely gram-negative infection. 2patient patient is status post I&D of the right elbow olecranon bursitis as well as bursectomy and deep culture. 3patient to continue vancomycin pharmacy to dose and cefepime while waiting for the cultures to finalize Time with Patient: Less than 30
--- NOTE | 2021-12-12 12:27 | P.PN ---
Subjective Progress Note Date: 12/12/21 Principal diagnosis: Right elbow olecranon bursitis/cellulitis Patient is a 51-year-old male presented to the hospital with right elbow pain swelling and redness has been diagnosed with right elbow olecranon bursitis and concerning for secondary cellulitis. Patient is status post right elbow bursectomy completed this morning 12/11/2021 On today's evaluation that is 12/12/2021, the patient denies any fever or chills, patient pain to the right elbow is currently controlled, patient denies having any chest pain or shortness of breath or cough no abdominal pain no di arrhea Objective - Vital Signs Vital signs: Vital Signs Temp 98.7 F 12/12/21 07:46 Pulse 80 12/12/21 07:46 Resp 16 12/12/21 08:00 BP 151/93 12/12/21 07:46 Pulse Ox 95 12/12/21 07:46 FiO2 Intake & Output 12/11/21 12/12/21 12/12/21 18:59 06:59 18:59 Intake Total 501 Output Total 1 Balance 500 Weight 95.254 kg Intake: IV 501 Output: Estimated Blood Loss 1 Other: Voiding Method Toilet Toilet # Voids 1 2 1 - Exam GENERAL DESCRIPTION: Middle-age male lying in bed in no distress RESPIRATORY SYSTEM: Unlabored breathing , decreased breath sounds at bases HEART: S1 S2 regular rate and rhythm , ABDOMEN: Soft , no tenderness EXTREMITIES: Right elbow is currently dressed still have significant swelling or redness of the right forearm - Labs CBC & Chem 7: 12/11/21 06:08 12/11/21 06:08 Labs: Microbiology - Last 24 Hours (Table) 12/11/21 10:26 Gram Stain - Preliminary Elbow - Right Wound Culture - Preliminary 12/11/21 10:25 Gram Stain - Preliminary Elbow - Right Wound Culture - Preliminary 12/11/21 10:25 Anaerobic Culture - Preliminary Elbow - Right 12/11/21 10:26 Anaerobic Culture - Preliminary Elbow - Right 12/09/21 14:18 Blood Culture - Preliminary Blood No Growth after 48 hours 12/09/21 14:18 Blood Culture - Preliminary Blood No Growth after 48 hours Assessment and Plan (1) Cellulitis of right upper limb Current Visit: Yes Status: Acute Code(s): L03.113 - CELLULITIS OF RIGHT UPPER LIMB SNOMED Code(s): 140285524 Plan: 1patient presented to hospital with sepsis since we did have a low-grade fever tachycardia and elevated white count source is right elbow/upper arm cellulitis and concerning for septic olecranon bursitis in this patient with recent puncture wound from a metallic object more likely from gram-positive skin queta and less likely gram-negative infection. 2patient patient is status post I&D of the right elbow olecranon bursitis as well as bursectomy and deep culture which are currently pending. 3patient to continue vancomycin pharmacy to dose and cefepime , will discharge antibiotics on the basis of final culture patient may benefit from IV antibiotic on discharge, casey saw operator to look for coverage Time with Patient: Less than 30
[2021-12-12] MEDS: lisinopriL 20 MG TAB PO SCH (20:10)
[2021-12-12] MEDS: LEVOTHYROXINE 75 MCG TAB PO SCH (20:11)
[2021-12-12] MEDS ORDERED: amLODIPine 5 MG TAB PO SCH (21:00)
[2021-12-13] MEDS: CEFEPIME 2 GM in SODIUM CHLORIDE 0.9% 100 ML IVPB SCH ×2 (01:59→08:50)
[2021-12-13] MEDS: HYDROmorphone 1 MG/ML 1 ML SYRINGE IVP PRN ×2 (02:05→08:50)
[2021-12-13] MEDS: VANCOMYCIN 1,750 MG in SODIUM CHLORIDE 0.9% 500 ML 500 ML IVPB SCH (05:25)
--- NOTE | 2021-12-13 08:20 | P.PN ---
Subjective Progress Note Date: 12/13/21 This is a 51-year-old gentleman, patient of Dr. Rust, known history of hypothyroidism, hypertension, current tobacco use, who was well until 4 days prior to admission where she had a puncture wound, with a metal brush use for automotive cleaning on 12/05/2021. Patient has swelling and tenderness, effusion in the right elbow, with small redness at that time, however this has Been worse, ascending to the axillae region, and down to the right wrist now circumferential in diameter, with swelling tenderness, he was seen in urgent care, was given Rocephin was subsequently sent to emergency room for admission. Patient needs an up-to-date tetanus vaccination, which would be offered during this admission. Currently the found the mental brush his that she took out from the skin, unknown how deep the brushes were located, x-rays failed to reveal any metallic foreign body consult with Dr. Osborne, and orthopedic surgeon 12/10: Patient is much better, however she did not sleep last night, pain is lessened, redness is less and, still with edema, induration and swelling is still present, however diminished in intensity. Start melatonin, start Lasix 40 mg daily, discontinue amlodipine, patient is off Unasyn, and replaced to Seprafilm, vancomycin infusing, with pharmacy to dose. Seen by infectious disease Dr. Osborne, pending orthopedic consultation. Will need intraoperative cultures wtih bursal debridement, holding off CAT scan at this time of elbow 12/11: Patient underwent intraoperative surgical debridement, right olecranon bursa, with cultures obtained, she denies any fever or chills no nausea no vomiting diarrhea, patient has insomnia, melatonin that was given is not helping out, increase to 10 mg melatonin. Patient has pain management as well, and bowel program. Vitals are stable, blood cultures are currently pending negative, culture sent fr olecranon on 12/11/202112/12: Yesterday, patient underwent right elbow olecranon bursectomy with irrigation and debridement by Dr. Clay. All cultures from that procedure aren't process. Previous blood cultures obtained on admission are showing no growth at 48 hours. Patient has been afebrile, heart rate 88, blood pressure 167/94, pulse ox 95% on room air. Patient is continued on cefepime and vancomycin per Dr. Osborne. /: Patient remains afebrile, heart rate 76, blood pressure 159/91, pulse ox 95% on room air. Amlodipine increased to 10 mg daily. Patient is now postop day #2. He is continued on cefepime and vancomycin. Wound cultures are in progress. Wound vac in place, improvement of edema and erythema. Plan to wait for cultures and recommendations from Dr. Osborne. Patient is very anxious to go home soon. Review of Systems Constitutional: No fever, no chills, no night sweats. No weight change. generalized weakness, EENT: No headache. No blurred vision or double vision, no loss of vision. No loss of Hearing, no ringing in the ears, no dizziness. No nasal drainage or congestion. No epistaxis. No sore throat. Lungs: No shortness of breath, cough, no sputum production. No wheezing. Cardiovascular: No chest pain, no lower extremity edema. No palpitations. No paroxysmal nocturnal dyspnea. No orthopnea. No lightheadedness or dizziness. No syncopal episodes. Abdominal: No abdominal pain. No nausea, vomiting. No diarrhea. No constipation. No bloody or tarry stools. No loss of appetite. Genitourinary: No dysuria, increased frequency, urgency. No urinary retention. Musculoskeletal: No myalgias. + muscle weakness, + gait dysfunction, no frequent falls. No back pain. No neck pain. Integumentary: , no lesions. No rash or pruritus. No unusual bruising. No change in hair or nails. Acute wound as described in the right upper extremity-improving Neurologic: No aphasia. No facial droop. noted change in mentation. No head injury. No headache. No paralysis. No paresthesia. Psychiatric: No depression. No anxiety. No mood swings. Endocrine: No abnormal blood sugars. No weight change. No excessive sweating or thirst. No cold intolerance. General Exam General appearance: alert, in no apparent distress no polyuria no jaundice no cyanosis Head exam: Present: atraumatic Respiratory exam: Absent: respiratory distress, accessory muscle use clear to auscultation bilaterally Cardiovascular Exam: Present: tachycardia regular no ectopy no murmurs Extremities exam: Present: normal capillary refill right upper extremity, with the elbow surgical wound, wound vac in place, edema decreased from yesterday, erythema to forearm surrounding wound. Forearm Wrist exam: Present: tenderness, swelling, erythema with diminished range of motion Vascular: Present: normal capillary refill, radial pulse. Absent: vascular compromise Neurological exam: Present: alert, oriented X3, normal gait Psychiatric exam: Present: normal affect, normal mood Skin exam: Present: warm, dry. Absent: cyanosis Assessment and plan 1 acute cellulitis suspected septic , olecranon bursitis right elbow status post surgical debridement, and intraoperative cultures, 12/11/2021. Initial injury puncture wound with a metal, from initial injury 12/05/2021, with circumf erential cellulitis, and worrisome complications include sepsis. Patient is continued on cefepime and vancomycin per infectious disease. Await wound cultures. Wound vac in place. 2. Hypertension with isolated upper extremity edema, start Lasix, resume amlodipine 5 mg daily, continue metoprolol 25 mg daily, lisinopril 40 mg 3. Hypothyroidism levothyroxine 75 4. DVT prophylaxis with early ambulation, monitor for compression or compartment syndrome upper extremity, at the puncture maria del carmen with cellulitis 5 GI prophylaxis Pepcid 6. Generalized Anxiety disorder, Ativan 1 mg twice a day when necessary 7 Tetanus vaccination updated, with a current puncture wound from a metal object DISCHARGE PLAN Home possibly with IV antibiotics. Impression and plan of care have been directed as dictated by the signing physician. Wanda Peña nurse practitioner acting as scribe for signing physician. Objective - Vital Signs Vital signs: Vital Signs Temp 98.1 F 12/13/21 07:11 Pulse 76 12/13/21 07:11 Resp 16 12/13/21 07:11 BP 159/91 12/13/21 07:11 Pulse Ox 95 12/13/21 07:11 FiO2 Intake & Output 12/12/21 12/13/21 12/13/21 18:59 06:59 18:59 Intake Total 180 1100 Balance 180 1100 Intake: Intake, IV Titration 600 Amount Cefepime 2 gm In Sodium 100 Chloride 0.9% 100 ml @ 25 mls/hr IVPB Q8H [facility] Rx#: [id number] Vancomycin 1,750 mg In 500 Sodium Chloride 0.9% 500 ml 500 ml @ 167 mls/hr IVPB Q12H [facility] Rx#: [id number] Oral 180 500 Other: Voiding Method Toilet # Voids 1 2 - Labs CBC & Chem 7: 12/11/21 06:08 12/11/21 06:08 Labs: Microbiology - Last 24 Hours (Table) 12/09/21 14:18 Blood Culture - Preliminary Blood No Growth after 72 hours 12/09/21 14:18 Blood Culture - Preliminary Blood No Growth after 72 hours 12/11/21 10:25 Gram Stain - Preliminary Elbow - Right Wound Culture - Preliminary 12/11/21 10:26 Gram Stain - Preliminary Elbow - Right Wound Culture - Preliminary
[2021-12-13] MEDS: METOPROLOL TARTRATE 25 MG TAB PO SCH (08:31)
[2021-12-13] MEDS: POTASSIUM CHLORIDE ER 10 MEQ TAB.ER.PRT PO SCH (08:31)
[2021-12-13] MEDS: FUROSEMIDE 20 MG TAB PO SCH (08:31)
[2021-12-13] MEDS ORDERED: amLODIPine 10 MG TAB PO SCH (09:00)
--- NOTE | 2021-12-13 11:05 | P.PN ---
Subjective Progress Note Date: 12/13/21 Principal diagnosis: Right elbow/forearm cellulitis. Olecranon bursitis right elbow. Postoperative I&D right elbow. This is a pleasant 51-year-old male who we are following regarding right upper extremity cellulitis. He has been on IV antibiotics since admission on 12/09/2021 with slight improvement in the erythema and swelling to the right upper extremity. He continues to have pain and swelling to the olecranon bursa. K pad was ordered yesterday. Blood cultures are showing no growth. Vital signs are stable. He has been afebrile since yesterday. White blood cell count is coming down a bit. 12/12/2021: The patient is status post I&D of the right elbow and application of Prevena wound VAC on 12/11/2021. He states that his arm is feeling better. He has no new complaints or concerns today. Vital signs are stable. White blood cell count is down to 9.7. 12/13/2021: Patient is doing well postoperatively. He has no new concerns today. Vital signs are stable. Wound cultures are showing no growth at 48 hours. Gram stain shows no organisms seen. Objective - Vital Signs Vital signs: Vital Signs Temp 98.1 F 12/13/21 07:11 Pulse 76 12/13/21 07:11 Resp 16 12/13/21 07:11 BP 159/91 12/13/21 07:11 Pulse Ox 95 12/13/21 07:11 FiO2 Intake & Output 12/12/21 12/13/21 12/13/21 18:59 06:59 18:59 Intake Total 180 1100 Balance 180 1100 Intake: Intake, IV Titration 600 Amount Cefepime 2 gm In Sodium 100 Chloride 0.9% 100 ml @ 25 mls/hr IVPB Q8H [facility] Rx#: [id number] Vancomycin 1,750 mg In 500 Sodium Chloride 0.9% 500 ml 500 ml @ 167 mls/hr IVPB Q12H [facility] Rx#: [id number] Oral 180 500 Other: Voiding Method Toilet # Voids 1 2 - Exam This is a pleasant 51-year-old male in no acute distress. He is alert and orien fernanda 3. Exam of the right upper extremity reveals that there is improvement in the erythema to the arm. Wound VAC is in place. Swelling improved. Elbow range of motion is improved today. He has full wrist and finger motion without difficulty or pain. Neurovascular status to the upper extremity is intact. - Labs CBC & Chem 7: 12/11/21 06:08 12/11/21 06:08 Labs: Microbiology - Last 24 Hours (Table) 12/11/21 10:26 Gram Stain - Final Elbow - Right Wound Culture - Final 12/11/21 10:25 Gram Stain - Final Elbow - Right Wound Culture - Final 12/09/21 14:18 Blood Culture - Preliminary Blood No Growth after 72 hours 12/09/21 14:18 Blood Culture - Preliminary Blood No Growth after 72 hours Assessment and Plan (1) Cellulitis of right upper limb Current Visit: Yes Status: Acute Code(s): L03.113 - CELLULITIS OF RIGHT UPPER LIMB SNOMED Code(s): 266088413 (2) Cellulitis Current Visit: Yes Status: Acute Code(s): L03.90 - CELLULITIS, UNSPECIFIED SNOMED Code(s): 773320794 Plan: The clinical findings are discussed the patient. He may be discharged home when cleared with internal medicine and infectious disease. He is to follow-up in one week for wound VAC removal.
[2021-12-13 11:56] LABS: African American GFR (CKD) 123.6 (60.0-200.0); Non-African American GFR(CKD) 106.6 (60.0-200.0)
--- NOTE | 2021-12-13 12:43 | P.DS ---
Providers Date of admission: 12/12/21 07:30 Expected date of discharge: 12/13/21 Attending physician: Maria M Marte Consults: 12/09/21 14:44 Consult Physician Routine Consulting Provider: Shashank Clay Consult Reason/Comments: cellulitis right upper arm Do you want consulting provider notified?: Yes, Notify in am Consult Physician Routine Consulting Provider: Elfego Osborne Consult Reason/Comments: cellulitis Do you want consulting provider notified?: Yes, Notify in am Primary care physician: Kartik Rust [facility] Course: This is a 51-year-old gentleman, patient of Dr. Rust, known history of hypothyroidism, hypertension, current tobacco use, who was well until 4 days prior to admission where she had a puncture wound, with a metal brush use for automotive cleaning on 12/05/2021. Patient has swelling and tenderness, effusion in the right elbow, with small redness at that time, however this has Been worse, ascending to the axillae region, and down to the right wrist now circumferential in diameter, with swelling tenderness, he was seen in urgent care, was given Rocephin was subsequently sent to emergency room for admission. Patient needs an up-to-date tetanus vaccination, which would be offered during this admission. Currently the found the mental brush his that she took out from the skin, unknown how deep the brushes were located, x-rays failed to reveal any metallic foreign body consult with Dr. Osborne, and orthopedic surgeon 12/10: Patient is much better, however she did not sleep last night, pain is lessened, redness is less and, still with edema, induration and swelling is still present, however diminished in intensity. Start melatonin, start Lasix 40 mg daily, discontinue amlodipine, patient is off Unasyn, and replaced to Sepraf ilm, vancomycin infusing, with pharmacy to dose. Seen by infectious disease Dr. Osborne, pending orthopedic consultation. Will need intraoperative cultures wtih bursal debridement, holding off CAT scan at this time of elbow 12/11: Patient underwent intraoperative surgical debridement, right olecranon bursa, with cultures obtained, she denies any fever or chills no nausea no vomiting diarrhea, patient has insomnia, melatonin that was given is not helping out, increase to 10 mg melatonin. Patient has pain management as well, and bowel program. Vitals are stable, blood cultures are currently pending negative, culture sent fr olecranon on 12/11/202112/12: Yesterday, patient underwent right elbow olecranon bursectomy with irrigation and debridement by Dr. Clay. All cultures from that procedure aren't process. Previous blood cultures obtained on admission are showing no growth at 48 hours. Patient has been afebrile, heart rate 88, blood pressure 167/94, pulse ox 95% on room air. Patient is continued on cefepime and vancomycin per Dr. Osborne. 12/13: Patient remains afebrile, heart rate 76, blood pressure 159/91, pulse ox 95% on room air. Amlodipine increased to 10 mg daily. Patient is now postop day #2. He is continued on cefepime and vancomycin. Wound cultures are in progress. Wound vac in place, improvement of edema and erythema. Plan to wait for cultures and recommendations from Dr. Osborne. Patient is very anxious to go home soon. Dr. Osborne recommends Rocephin 2 g IV 1 and then Keflex 500 mg every 6 hours for 2 weeks and cleared for discharge home. DISCHARGE DIAGNOSES 1. Acute right elbow septic oh chronic bursitis status post right elbow olecranon on bursectomy and irrigation debridement. 2. Hypertension 3. Hypothyroidism 4. Generalized Anxiety disorder 5 Tetanus vaccination updated, DISCHARGE PLAN Home possibly with IV antibiotics. Greater than 35 minutes was utilized and coordinating patient's discharge. Impression and plan of care have been directed as dictated by the signing physician. Wanda Peña nurse practitioner acting as scribe for signing physician. Patient Condition at Discharge: Stable Plan - Discharge Summary Discharge Rx Participant: Yes New Discharge Prescriptions: New Cephalexin [Keflex] 500 mg PO Q6HR 14 Days #56 cap amLODIPine [Norvasc] 10 mg PO DAILY #30 tab Acetaminophen Tab [Tylenol] 650 mg PO Q6HR PRN tab PRN Reason: Mild Pain Or Fever > 100.5 Continue Cyclobenzaprine [Flexeril] 10 mg PO TID PRN PRN Reason: Pain Levothyroxine Sodium [Synthroid] 75 mcg PO HS Ibuprofen 800 mg PO Q8H PRN PRN Reason: Pain Metoprolol Tartrate [Lopressor] 25 mg PO DAILY LORazepam [Ativan] 1 mg PO BID PRN PRN Reason: Anxiety Benazepril HCl 40 mg PO HS Discontinued amLODIPine [Norvasc] 5 mg PO HS Discharge Medication List Cyclobenzaprine [Flexeril] 10 mg PO TID PRN 02/12/19 [History] Benazepril HCl 40 mg PO HS 12/09/21 [History] Ibuprofen 800 mg PO Q8H PRN 12/09/21 [History] LORazepam [Ativan] 1 mg PO BID PRN 12/09/21 [History] Levothyroxine Sodium [Synthroid] 75 mcg PO HS 12/09/21 [History] Metoprolol Tartrate [Lopressor] 25 mg PO DAILY 12/09/21 [History] Acetaminophen Tab [Tylenol] 650 mg PO Q6HR PRN tab 12/13/21 [Rx] Cephalexin [Keflex] 500 mg PO Q6HR 14 Days #56 cap 12/13/21 [Rx] amLODIPine [Norvasc] 10 mg PO DAILY #30 tab 12/13/21 [Rx] Follow up Appointment(s)/Referral(s): [facility], [NON-STAFF] - 1 Week Kartik Rust DO [Primary Care Provider] - 1 Week Shashank Clay MD [STAFF PHYSICIAN] - 12/19/21 9:25 am (removal of Prevena wound vac ) Elfego Osborne MD [STAFF PHYSICIAN] - 12/25/21 2:45 pm ([address] , behind [facility].) Patient Instructions/Handouts: How to Stop Smoking (DC), Cellulitis (ED) Activity/Diet/Wound Care/Special Instructions: Maintain wound VAC until follow-up visit. Antibiotics per infectious disease. Discharge Disposition: HOME WITH HOME HEALTH SERVICES
[2021-12-13 14:01] VITALS: BP 139/86; PULSE 77; RESP 18; TEMP 98.2
== END 2021-12-13 18:04 | disposition home health service (06) | DRG 854 ==
LOC: EC 12:02 → 6NMEDSUR 14:46 → OBSVTOIN 12-12 07:30
PROVIDERS: ADMIT Family Medicine; ATTEND Family Medicine
PROC: 0MB30ZZ Excision of Right Elbow Bursa and Ligament, Open Approach (ICD-10-PCS; 2021-12-11)
PROC: 3E0234Z Introduction of Serum, Toxoid and Vaccine into Muscle, Percutaneous Approach (ICD-10-PCS; principal; 2021-12-12)
DX: A41.9 Sepsis, unspecified organism (principal); L03.113 Cellulitis of right upper limb; M00.821 Arthritis due to other bacteria, right elbow; M71.121 Other infective bursitis, right elbow; E03.9 Hypothyroidism, unspecified; I10 Essential (primary) hypertension; E11.9 Type 2 diabetes mellitus without complications; F11.10 Opioid abuse, uncomplicated; S51.031A Puncture wound without foreign body of right elbow, initial encounter; M25.421 Effusion, right elbow; R60.0 Localized edema; F41.1 Generalized anxiety disorder; F17.210 Nicotine dependence, cigarettes, uncomplicated; W45.8XXA Other foreign body or object entering through skin, initial encounter; W27.8XXA Contact with other nonpowered hand tool, initial encounter; Z82.49 Family history of ischemic heart disease and other diseases of the circulatory system; Z80.3 Family history of malignant neoplasm of breast; Z80.8 Family history of malignant neoplasm of other organs or systems; Z79.899 Other long term (current) drug therapy; Z79.890 Hormone replacement therapy; Z23 Encounter for immunization; Z87.19 Personal history of other diseases of the digestive system; Z86.018 Personal history of other benign neoplasm; Z98.890 Other specified postprocedural states
CPT/HCPCS: 36415; 80048; 80053; 80202; 82565; 83036; 83605; 85025; 87040; 87070; 87075; 87205; 90715